=== PATIENT | female | born 1945 | race Caucasian/White ===

== ENCOUNTER → 2024-03-13 | Outpatient (CLI) | payer MEDICARE, BC, SELFPAY ==
--- NOTE | 2024-03-13 | XR_ITS ---
Examination: Bilateral hips, AP pelvis, 5 views Technique: AP, lateral views both hips, AP pelvis, 5 views Exam date and time: March 13, 2024 0815 hours INDICATIONS: Bilateral hip pain several years FINDINGS: Mild to moderate narrowing hip joints Prominent osteopenia No hip or pelvic fracture No avascular necrosis IMPRESSION: Mild to moderate bilateral hip joint narrowing
--- NOTE | 2024-03-13 | XR_ITS ---
Examination: Foot, left, 3 views Technique: AP, oblique, lateral views foot, 3 views Date and time of exam: March 13, 2024 0815 hours INDICATIONS: Left foot pain beginning 2 weeks ago. FINDINGS: Prominent osteopenia No fracture or dislocation 8mm plantar bony calcaneal spur Ossification in the plantar fascia Mild narrowing first metatarsophalangeal joint IMPRESSION: 8mm plantar bony calcaneal spur Ossification in the plantar fascia
[2024-03-13 10:11] LABS: Vitamin D 25 Hydroxy Total 45.8 ng/mL (7.3-40.2)
== END | disposition home or self-care (01) ==
LOC: COPL 07:49
PROVIDERS: PCP Specialist; Referring Provider Orthopaedic Surgery; Visit Provider Radiology Diagnostic Radiology
DX: M25.852 Other specified joint disorders, left hip (principal); M25.851 Other specified joint disorders, right hip; M77.32 Calcaneal spur, left foot; M72.2 Plantar fascial fibromatosis; E55.9 Vitamin D deficiency, unspecified
CPT/HCPCS: 36415; 73522; 73630; 82306

== ENCOUNTER 2024-03-23 13:55 | Inpatient (IN) | payer MEDICARE, BC, SELFPAY ==
[2024-03-23] VITALS (8 sets, daily range): BP systolic 111–146; BP diastolic 70–85; PULSE 60–72; RESP 15–20; TEMP 36.1–37.1; O2SAT 95–99; BMI 22.6
--- NOTE | 2024-03-23 14:30 | XR_ITS ---
Examination:Right hip AP, lateral, AP pelvis 3 views Technique: Hip AP lateral, AP pelvis, 3 views Exam date and time:March 23, 2024 1458 hrs. Indications: Patient fell today with injury to the right hip, right hip pain Findings: No definite acute right hip fracture Left hip bones of the pelvis intact Severe osteopenia Impression: No definite acute right hip fracture, given the patient's severe osteopenia, recommend short-term follow-up AP pelvis or CT scan pelvis without contrast as clinically warranted.
--- NOTE | 2024-03-23 14:32 | EDNOTE_ITS ---
ED General RME/HPI General Chief complaint: Fall Stated complaint: HIP PAIN Time Seen by Provider: 03/23/24 14:21 Arrival date/time: 03/23/24 13:55 RME / HPI RME / HPI narrative: 78-year-old female with a history of osteoarthritis who had a misstep in the kitchen onto the lateral aspect of her right hip. She complains of right hip pain, with it stuck in internal rotation due to the pain. She denies head or neck injury. Review of Systems Review of Systems Systems Reviewed: All systems reviewed, normal except as documented ED Exam Narrative Physical exam: GENERAL APPEARANCE: AxOx4, generally well-appearing, no acute distress. HEENT: NC, AT. MMM. EOMI, clear conjunctiva, oropharynx clear. NECK: Supple without lymphadenopathy. No stiffness or restricted ROM. HEART: Normal rate and regular rhythm, normal S1/S1, no m/r/g LUNGS: CTAB, moving air well. No crackles or wheezes are heard. ABDOMEN: Soft, nontender, nondistended with good bowel sounds heard. BACK: No midline C/T/L spine pain or deformity, No CVAT, no obvious deformity. EXTREMITIES: Without cyanosis, clubbing or edema. MUSCULOSKELETAL: Right hip held in internal rotation and flexion, she refuses to move it secondary to pain. FROM of all remaining major joints, no chest tenderness NEUROLOGICAL: Grossly nonfocal. Alert and oriented, moving all 4 extremities. CN not formally tested but appear grossly intact. Observed to ambulate with normal gait. Skin: Warm and dry without any rash. Course Quality Measures none Orders Category Date Time Status CT pelvis wo con Stat Exams 03/23/24 15:27 Taken XR hip RT w pelvis 2-3V Stat Exams 03/23/24 14:30 Completed Morphine Inj Med 03/23/24 15:53 Discontinued 4 mg IVP X1 ONE Morphine Inj Med 03/23/24 14:30 Discontinued 6 mg IVP X1 ONE Vital Signs Vital signs: Vital Signs Temperature 97.6 F 03/23/24 14:01 Pulse Rate 60 03/23/24 14:01 Respiratory Rate 17 03/23/24 14:01 Blood Pressure 125/85 H 03/23/24 14:01 Pulse Oximetry (%) 97 03/23/24 14:01 Oxygen Delivery Method Room Air 03/23/24 14:01 SpO2 97% on room air, patient is not hypoxic [facility] Patient data External records reviewed:: [facility] previous records Clinical information provided by:: patient Social determinants that could affect healthcare access:: none Patient has the following chronic illnesses:: None How is presenting disease/condition affected by chronic disease/condition?: no chronic disease Evaluation data The following diagnostics were reviewed and interpreted by me:: radiology exam(s) Lab and/or radiology exams considered but not ordered:: Workup pending Interpretation Summary: Workup pending Medications Medications considered but not ordered:: None Medication administrations:: Medication Administration History Discontinued Medications Morphine Sulfate (Morphine Sulf Inj 10 Mg/Ml Vial) 6 mg IVP X1 ONE Stop: 03/23/24 14:31 Last Admin: 03/23/24 14:38 Dose: 6 mg Documented By: GM Morphine Sulfate (Morphine Sulf Inj 10 Mg/Ml Vial) 4 mg IVP X1 ONE Stop: 03/23/24 15:54 Last Admin: 03/23/24 16:18 Dose: 4 mg Documented By: CS Above Consultations Consultation(s) initiated? (list below): No Diagnosis Differential Diagnosis ED Complaint MDM: Workup pending Most likely diagnosis given after review of the tests above:: Workup pending Admission Indicated Admission indicated?: not indicated Explain why admission is indicated or not indicated:: Workup pending 1800: Signed out to oncoming provider, Dr. Berger, pending CT results and final disposition Admission Request Was there a request for admission?: No Disposition Plan Disposition Plan: other (specify) (Signed out to oncoming provider in stable condition) Medical Decision Making Differential Diagnosis Differential Diagnosis: Workup pending Discharge Plan Prescriptions/Referrals Referrals: Chapito Garsia MD [Primary Care Provider] - In 1 week Problem List Clinical Impression: Acute pain of right hip, Ground-level fall Patient/Caregiver Discharge Instructions Print Language: Danish
[2024-03-23] MEDS: MORPHINE SULF INJ 10 MG/ML VIAL 6 MG IVP (14:38)
--- NOTE | 2024-03-23 15:27 | XR_ITS ---
Examination: CT pelvis without intravenous contrast. 2-D sagittal and coronal reconstructions. Date and time of exam:March 23, 2024 1659 hrs. Indications: Patient fell today with injury to the right hip, right hip pain CTDI: vol (mGy) :9.92 DLP: (mGycm) : 338 Technique: Multiple 3 mm axial sections of the pelvis have been obtained with the 64 slice high resolution scanner. 2-D sagittal and coronal reconstructions. Low dose protocols were performed. One or more of the following dose reduction techniques were used; automated exposure control, adjustment of the mA and/or KV according to patient size, use of iterative reconstruction technique. Findings: Severe osteopenia Acute right hip fracture which appears to involve the low femoral neck There is possible involvement also of the greater trochanter No hip dislocation Left hip bones of the pelvis intact Impression: Acute right hip fracture which appears to involve the low femoral neck with possible involvement also of the greater trochanter MRI right hip without contrast follow-up would best confirm an intertrochanteric portion of this hip fracture
[2024-03-23] MEDS: MORPHINE SULF INJ 10 MG/ML VIAL 4 MG IVP ×2 (16:18→18:39)
--- NOTE | 2024-03-23 18:15 | PD.EDADDENDU ---
Emergency Room Addendum Addendum Narrative: 1800: Care assumed from Dr. Rivera, the previous shift emergency physician. Past medical, surgical, social and family history reviewed. Vitals and home medications reviewed. Results and treatment plan discussed. I will assume the care of the patient at this time and will follow the patient, pending CT pelvis. Please refer to the emergency department record for history and examination from initial visit. 1851: Discussed case with [Dr. Miller] from [orthopedic surgery] regarding [consultation]. Discussed patients ED course, exam findings, labs, and radiology results. States to admit the patient. Agrees to consult. 1907: Discussed case with [the resident physician, attending Dr. Vazquez] from Hospitalist service regarding admission. Discussed patients ED course, exam findings, labs, and radiology results. The Hospitalist [agrees] to accept the patient for admission. RADIOLOGY RESULTS: [place] [facility] Report Signed Patient: LORENA SPAIN Record#: [id number] Birthdate: 1945 Age/Sex: 78 / F Location: [facility] Attending Dr: Ordering Physician: Mark Rivera MD Date of Service: 03/23/24 Procedure(s): CT pelvis wo con Accession Number(s): [id number] cc: Chapito Garsia MD; Mark Rivera MD; Brian Ozuna MD~ Examination: CT pelvis without intravenous contrast. 2-D sagittal and coronal reconstructions. Date and time of exam:March 23, 2024 1659 hrs. Indications: Patient fell today with injury to the right hip, right hip pain CTDI: vol (mGy) :9.92 DLP: (mGycm) : 338 Technique: Multiple 3 mm axial sections of the pelvis have been obtained with the 64 slice high resolution scanner. 2-D sagittal and coronal reconstructions. Low dose protocols were performed. One or more of the following dose reduction techniques were used; automated exposure control, adjustment of the mA and/or KV according to patient size, use of iterative reconstruction technique. Findings: Severe osteopenia Acute right hip fracture which appears to involve the low femoral neck There is possible involvement also of the greater trochanter No hip dislocation Left hip bones of the pelvis intact Impression: Acute right hip fracture which appears to involve the low femoral neck with possible involvement also of the greater trochanter MRI right hip without contrast follow-up would best confirm an intertrochanteric portion of this hip fracture Dictated By: Brian Ozuna MD Signed By: <Electronically signed by Brian Ozuna MD in OV> 03/23/24 181
--- NOTE | 2024-03-23 19:49 | ESHP_ITS ---
Documentation for date of: 03/23/24 HPI History of Present Illness Chief complaint: Ground level fall History of present illness: 78-year-old female with past medical history of osteoporosis not on any current medications, chronic hip pain, mitral valve prolapse followed by Dr. Fortune without any cardiac surgeries presenting to the ED on 03/14 after a ground-level fall. Patient states that she was walking in her kitchen when she made a quick twisting movement lost her balance. Patient states she attempted to grab onto a chair but the chair also slipped out and she fell on her right side. Patient denies losing consciousness or experiencing any shortness of breath, chest pain/tightness, palpitations during episode. Patient was aware that she had fallen and was not confused at any point during the fall; moreover, she was on the floor for about 20 to 30 minutes. Patient's cell phone was nearby and she noticed that her family members were attempting to contact her through text messaging. Patient's daughter and son are bedside and corroborated the story stating that they were with her within 30 minutes and called the ambulance. Patient denies having any current medical conditions that are being treated with prescription medication; however, she follows Dr. Fortune and apparently other than having a valvular issue does have any medical problems. Per patient's family, she has been having hip pain and is followed by Dr. Lawson outpatient requiring glucocorticoid management; as result, she walks with a shuffling like gait. Medical history: As stated above Surgical history: Patient has a prior fall with fracture of ribs and cervical spine Allergies: NKDA Medications: Patient does not take any prescribed occasions Family history: Noncontributory Social history: Patient lives by herself, per family dances 4-5 nights a week/she is active, patient is able to care for her independent daily activities, denies smoking alcohol, drinking alcohol or illicit drug use ROS: All 12 systems assessed and the patient denies unless otherwise stated in HPI In the ED, patient presented mildly hypertensive, normal heart rate, normal respiratory rate, afebrile satting 97 on room air. Pertinent imaging findings included Hip/pelvis x-ray showing no definite acute right hip fracture, but pelvic CT showing acute right hip fracture involving the left femoral neck and also possibly greater trochanter. ED physician contacted Dr. Miller who has agreed to see the patient in follow-up with surgery. Patient will be admitted for IV pain medication and management pre and postoperatively for right hip fracture with Dr. Miller. Exam Vital Signs Temp Pulse Resp BP Pulse Ox O2 Del Method 98.3 F 63 15 123/78 99 Room Air 03/23/24 18:03 03/23/24 18:03 03/23/24 18:03 03/23/24 18:03 03/23/24 18:03 03/23/24 18:03 Narrative Exam Physical Exam: GENERAL: Awake, answering questions appropriately, appears stated age HEENT: NC/AT. Moist mucosa. PERRLA/EOMI. Presbycusis CARDIO: Heart RRR, no obvious murmurs, no JVD. PULM: No coughing or visible SOB. Lungs CTA B/L. GI: Abdomen soft, NT/ND, +BS. SKIN/MSK/EXT: No wounds/discoloration/rashes/edema/amputations. +Pedal pulses present B/L. 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 Quality Measures Quality Measures none Advance care planning discussed with:: patient Medications Home Medications and Allergies Allergies Allergy/AdvReac Type Severity Reaction Status Date / Time No Known Allergies Allergy Verified 03/23/24 18:57 Visit Medications Acetaminophen (Acetaminophen 325 Mg Tablet) 650 mg PO Q6H PRN PRN Reason: Pain 1-3 and/or Fever >100.1 Stop: 04/22/24 19:42 Hydromorphone HCl (Hydromorphone Inj 2 Mg/Ml Vial) 0.5 mg IVP PRN PRN PRN Reason: PAIN 9-10 Stop: 03/28/24 18:49 Ketorolac Tromethamine (Ketorolac Inj 30 Mg/Ml Vial) 30 mg IVP Q6HR PRN PRN Reason: Pain 4-6 Stop: 03/28/24 19:47 Morphine Sulfate (Morphine Sulf Inj 10 Mg/Ml Vial) 1 mg IVP Q4HR PRN PRN Reason: Pain Scale 7-8 Stop: 03/28/24 19:42 Ondansetron HCl (Ondansetron Inj 2 Mg/Ml Inj 2 Ml) 4 mg IV Q6H PRN; Protocol PRN Reason: NAUSEA OR VOMITING Stop: 04/22/24 19:42 Pantoprazole Sodium (Pantoprazole Inj 40 Mg Vial) 40 mg IVP QDAY MARCK Stop: 04/23/24 08:59 Sennosides (Senna Tablet) 1 tab PO QDAY PRN; Protocol PRN Reason: constipation Stop: 04/24/24 08:59 Discontinued Medications Hydromorphone HCl (Hydromorphone Inj 2 Mg/Ml Vial) 0.5 mg IVP PRN PRN PRN Reason: PAIN Stop: 03/28/24 18:49 Morphine Sulfate (Morphine Sulf Inj 10 Mg/Ml Vial) 6 mg IVP X1 ONE Stop: 03/23/24 14:31 Last Admin: 03/23/24 14:38 Dose: 6 mg Morphine Sulfate (Morphine Sulf Inj 10 Mg/Ml Vial) 4 mg IVP X1 ONE Stop: 03/23/24 15:54 Last Admin: 03/23/24 16:18 Dose: 4 mg Morphine Sulfate (Morphine Sulf Inj 10 Mg/Ml Vial) 4 mg IVP X1 ONE Stop: 03/23/24 18:36 Last Admin: 03/23/24 18:39 Dose: 4 mg Morphine Sulfate (Morphine Sulf Inj 10 Mg/Ml Vial) 4 mg IVP X1 ONE Stop: 03/23/24 18:49 Morphine Sulfate (Morphine Sulf Inj 10 Mg/Ml Vial) 1 mg IVP Q4HR PRN PRN Reason: PAIN SCALE 7-10 (Severe Stop: 03/28/24 19:42 Assessment & Plan Plan 78-year-old female with past medical history of osteoporosis not on any current medications, chronic hip pain, mitral valve prolapse followed by Dr. Fortune without any cardiac surgeries presenting after a ground-level fall will be admitted for IV pain medication and management pre and postoperatively for right hip fracture with Dr. Miller. #R hip fracture #Ground level fall #Acute pain due to trauma As noted in HPI, patient had a ground-level fall which occurred after she turned to the right in her kitchen Patient did not lose consciousness, no palpitations, no chest pain or shortness of breath Fall was not witnessed but the patient denies having any confusion during or after the episode In the ED, hip/pelvic x-ray did not show fracture but pelvic CT confirmed acute right hip fracture involving the low femoral neck and greater trochanter Patient in acute pain in the ED requiring a total of 14 mg morphine along with hydromorphone as needed for severe pain Plan: Dr. Miller, orthopedic surgery, consulted appreciate recommendations Patient will be n.p.o. after midnight pending likely surgery on 03/24 Multimodal pain management IV Zofran for as needed nausea PT eval Patient's family and patient have been made aware that she might require SNF placement #History of Osteoporosis #Right hip pain Patient has known history of osteoporosis, used to be on allergy overnight but currently denies take any prescription medications Per family patient has been having hip pain for several years, followed by Dr. Lawson Apparently secondary to the pain the patient's been having shuffling like gait which is attributed as a reason for her fall Plan: Outpatient follow-up #Mitral Valve Prolapse Patient follows up with Dr. Fortune, cardiology outpatient Per patient, she has mitral valve prolapse but then she stated that the problem is on the right side of her heart? When asked if she meant tricuspid valve she did not know Patient denies having any other cardiac disorders and denies taking any prescription medication Plan: Outpatient follow-up Hospital Management: Lines: PIV Diet: N.p.o. after midnight Bowel: Senna as needed GI prophylaxis: Protonix DVT prophylaxis: SCDs Dispo: Right hip fracture requiring surgery with Dr. Miller, appreciate recommendations Code: Full Patient seen and assessed with attending Dr. Lopez,and senior resident Dr. Heena Appiah, PGY-1 Attending Provider Attestation/Addendum I discussed with and supervised the resident physician who took care of this patient. I agree with the assessment and plan as above.
[2024-03-23] MEDS: ONDANSETRON INJ 2 MG/ML INJ 2 ML 4 MG IV (20:02)
[2024-03-23] MEDS: HYDROmorphone INJ 2 MG/ML VIAL 0.5 MG IVP (20:03)
[2024-03-23 20:29] LABS: Basophils % (Auto) 0 % (0-2.5); Eosinophils % (Auto) 0 % (0-10); Hematocrit 35.4 % (36.0-46.0); Immature Granulocytes % (Auto) 1 % (0-0); Immature Granulocytes Auto 0.06 Thou/mm3 (0.00-0.00); Lymphocytes # (Auto) 0.6 Thou/mm3 (1.0-4.8); Lymphocytes % (Auto) 5 % (10-50); Mean Corpuscular HGB Conc 33.9 g/dl (31.0-37.0); Mean Corpuscular Hemoglobin 28.9 pg (25.0-35.0); Mean Corpuscular Volume 85 fL (80-100); Monocytes # (Auto) 0.7 Thou/mm3 (0.0-0.8); Monocytes % (Auto) 6 % (0-12); Neutrophils # (Auto) 10.1 Thou/mm3 (1.8-7.7); Neutrophils % (Auto) 88 % (37-80); Nucleated Red Blood Cell % 0 /100 WBC (0); Platelet Count 157 Thou/mm3 (140-440); RDW Standard Deviation 43.8 fL (36.4-46.3); Red Blood Count 4.15 Miln/mm3 (4.00-5.20); White Blood Count 11.5 Thou/mm3 (3.6-11.0)
[2024-03-23 20:49] LABS: Alanine Aminotransferase 18 U/L (10-49); Albumin, Serum 3.8 gm/dL (3.4-4.8); Albumin/Globulin Ratio 1.2 (1.2-2.2); Alkaline Phosphatase 84 U/L (46-116); Anion Gap 7 (7-16); Aspartate Amino Transferase 32 U/L (0-34); BUN/Creatinine Ratio 19 Ratio (12-20); Bilirubin,Total 0.9 mg/dL (0.3-1.2); Blood Urea Nitrogen 15 mg/dL (9-23); Calcium 9.3 mg/dL (8.3-10.6); Calcium (Corrected) 9.5 mg/dL (8.5-10.1); Chloride 104 mMol/L (98-107); Creatinine (Component) 0.8 mg/dL (0.6-1.3); Estimated Creatinine Clearance 52.5 mL/min (>60); Globulin 3.1 gm/dL (2.3-3.5); Glucose 117 mg/dL (74-106); Osmolality,Calculated 275 (275-295); Potassium 3.5 mMol/L (3.4-5.1); Sodium 137 mMol/L (136-145); Total Protein 6.9 gm/dL (5.7-8.2); eGFR > 60 See Note
--- NOTE | 2024-03-23 21:00 | PC.NURSE ---
Pt is awake/alert/oriented x3. Respirations are even and unlabored. No s/s of acute distress noted. Call light within reach. Plan of care ongoing.
--- NOTE | 2024-03-23 21:43 | PC.NURSE ---
Report given to ALISHA Wood
[2024-03-24] VITALS: BP 116/69; PULSE 57; RESP 16; TEMP 36.3; O2SAT 98
[2024-03-24] MEDS: KETOROLAC INJ 30 MG/ML VIAL IVP (01:16)
[2024-03-24 04:00] VITALS: BP 108/75; PULSE 58; RESP 17; TEMP 36.2; O2SAT 99
[2024-03-24 06:04] LABS: Basophils % (Auto) 0 % (0-2.5); Eosinophils % (Auto) 0 % (0-10); Hematocrit 35.3 % (36.0-46.0); Hemoglobin 11.8 g/dL (12.0-16.0); Immature Granulocytes % (Auto) 1 % (0-0); Immature Granulocytes Auto 0.04 Thou/mm3 (0.00-0.00); Lymphocytes # (Auto) 1.2 Thou/mm3 (1.0-4.8); Lymphocytes % (Auto) 14 % (10-50); Mean Corpuscular HGB Conc 33.4 g/dl (31.0-37.0); Mean Corpuscular Hemoglobin 29.4 pg (25.0-35.0); Mean Corpuscular Volume 88 fL (80-100); Monocytes # (Auto) 0.9 Thou/mm3 (0.0-0.8); Monocytes % (Auto) 10 % (0-12); Neutrophils # (Auto) 6.6 Thou/mm3 (1.8-7.7); Neutrophils % (Auto) 75 % (37-80); Nucleated Red Blood Cell % 0 /100 WBC (0); Platelet Count 162 Thou/mm3 (140-440); RDW Standard Deviation 45.1 fL (36.4-46.3); Red Blood Count 4.01 Miln/mm3 (4.00-5.20); White Blood Count 8.9 Thou/mm3 (3.6-11.0)
[2024-03-24] MEDS: MORPHINE SULF INJ 10 MG/ML VIAL IVP (06:10)
[2024-03-24 06:43] LABS: INR 1.1 (0.9-1.3); Partial Thromboplastin Time 24.8 Seconds (22.0-36.0); Prothrombin Time 11.9 Seconds (9.0-12.2)
[2024-03-24 07:13] LABS: Alanine Aminotransferase 19 U/L (10-49); Albumin, Serum 3.7 gm/dL (3.4-4.8); Albumin/Globulin Ratio 1.2 (1.2-2.2); Alkaline Phosphatase 81 U/L (46-116); Anion Gap 7 (7-16); Aspartate Amino Transferase 29 U/L (0-34); BUN/Creatinine Ratio 18 Ratio (12-20); Blood Urea Nitrogen 14 mg/dL (9-23); Calcium 9.4 mg/dL (8.3-10.6); Calcium (Corrected) 9.6 mg/dL (8.5-10.1); Carbon Dioxide 27.9 mMol/L (20.0-31.0); Chloride 102 mMol/L (98-107); Creatinine (Component) 0.8 mg/dL (0.6-1.3); Estimated Creatinine Clearance 52.5 mL/min (>60); Glucose 109 mg/dL (74-106); Osmolality,Calculated 275 (275-295); Phosphorous 4.3 mg/dL (2.4-5.1); Potassium 4.4 mMol/L (3.4-5.1); Sodium 137 mMol/L (136-145); Total Protein 6.7 gm/dL (5.7-8.2); eGFR > 60 See Note
[2024-03-24 07:25] LABS: Cardiac Risk Estimate 2.4 RATIO (3.7-5.6); Cholesterol 137 mg/dL (132-200); HDL Cholesterol 57 mg/dL (40-60); LDL Cholesterol,Calculated 71 mg/dL (0-130); Triglycerides 47 mg/dL (30-150)
[2024-03-24 08:00] VITALS: BP 119/69; PULSE 55; RESP 15; TEMP 36.1; O2SAT 95
--- NOTE | 2024-03-24 08:59 | PC.PT ---
Patient has a R hip fracture. Will hold PT eval pending ortho consult/surgical intervention.
--- NOTE | 2024-03-24 09:03 | EKG_ITS ---
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 : 1945 Requested By: Alona Al Order Number: [id number] Reading MD: Alona Al Measurements Intervals [place] Rate: 64 P: 183 OK: 139 QRS: -71 QRSD: 148 T: 38 QT: 437 QTc: 453 Interpretive Statements ECTOPIC ATRIAL RHYTHM WITH OCCASIONAL VENTRICULAR PREMATURE COMPLEXES RIGHT BUNDLE BRANCH BLOCK [120+ ms QRS DURATION, UPRIGHT V1, 40+ ms S IN I/aVL/V4/V5/V6] LEFT ANTERIOR FASCICULAR BLOCK [QRS AXIS <= -45, QR IN I, RS IN II] LEFT VENTRICULAR HYPERTROPHY AND ST-T CHANGE [VOLTAGE CRITERIA PLUS ST/T ABNORMALITY] POSSIBLE ANTEROSEPTAL MYOCARDIAL INFARCTION , OF INDETERMINATE AGE [30 ms Q WAVE IN V1-V4] Compared to ECG 07/19/2021 11:01:39 Ectopic atrial rhythm now present Ventricular premature complex(es) now present ST (T wave) deviation now present Sinus rhythm no longer present First degree AV block no longer present Myocardial infarct finding still present /store/S0/[id number]/ecg/[id number].pdf
--- NOTE | 2024-03-24 09:03 | XR_ITS ---
Examination: AP chest single view TECHNIQUE: AP portable sitting chest single view Exam date and time: March 24, 2024 0959 hours Comparison October 26, 2022 INDICATIONS: Preop hip fracture repair FINDINGS: Moderate hyperexpansion Normal heart size Accentuation basilar bronchovascular markings. No lobar pneumonia Prominent osteopenia IMPRESSION: COPD Basilar bronchitis pattern
[2024-03-24] MEDS: PANTOPRAZOLE INJ 40 MG VIAL IVP (09:36)
[2024-03-24] MEDS: HYDROmorphone INJ 2 MG/ML VIAL 0.5 MG IVP ×5 (10:18→22:03)
--- NOTE | 2024-03-24 10:58 | PC.SS ---
Patient Shreya Sotelo is a 78 Year old female admitted ofr RT HIP FX. SS met with patient and daughter, Lawanda Peñaloza at bedside to review demographic information and discuss discharge planning. Patient lives at home with daughter, Lawanda who reports is surrogate decision maker [phone]. Prior to admission patient did not utilize any sorce of DME to assist with ambulation. Patient was able to complete all ADL's independently. Choice of pharmacy is [facility]. At time of Discharge patient will need SNF. First choice of SNF is [facility]. SS will submit inqury through [employer] platform. Next of Kin: Lawanda Peñaloza PCP: Chapito Bustamante Discharge plan: SNF VS Home
--- NOTE | 2024-03-24 11:14 | PC.SS ---
Patient Shreya Sotelo is a 78 Year old female admitted ofr RT HIP FX. SS met with patient and daughter, Lawanda Peñaloza at bedside to review demographic information and discuss discharge planning. Patient lives at home with daughter, Lawanda who reports is surrogate decision maker [phone]. Prior to admission patient did not utilize any sorce of DME to assist with ambulation. Patient was able to complete all ADL's independently. Choice of pharmacy is [facility]. At time of Discharge patient will need SNF. First choice of SNF is [facility]. SS will submit inqury through [employer] platform. Next of Kin: Lawanda Peñaloza PCP: Chapito Bustamante Discharge plan: SNF VS Home
--- NOTE | 2024-03-24 11:14 | PC.SS ---
Patient Shreya Sotelo is a 78 Year old female admitted ofr RT HIP FX. SS met with patient and daughter, Lawanda Peñaloza at bedside to review demographic information and discuss discharge planning. Patient lives at home with daughter, Lawanda who reports is surrogate decision maker [phone] Prior to admission patient did not utilize any sorce of DME to assist with ambulation. Patient was able to complete all ADL's independently. Choice of pharmacy is [facility]. At time of Discharge patient will need SNF. First choice of SNF is [facility]. SS will submit inqury through [employer] platform. Next of Kin: Lawanda Anabela [phone] Work: [phone] PCP: Chapito Bustamante Discharge plan: SNF VS Home
--- NOTE | 2024-03-24 11:19 | PC.SS ---
SS follow up note; SS submitted inquiry through [employer] platform. Family would like [facility]. SS contacted Jennifer and they are able to accept patient when medically cleared. SS submitted PASSR and faxed to Jennifer from [facility].
--- NOTE | 2024-03-24 11:54 | ESPR_ITS ---
Documentation for date of: 03/24/24 Subjective Subjective Interval history: No overnight events. Patient was resting in bed this morning, complaining of low back and right hip pain with movement. She was n.p.o. overnight, but we resume diet today since surgery scheduled for tomorrow. Denies fever, chills, headaches, chest pain, sob, cough, GI or urinary symptoms. Exam Vital Signs Temp Pulse Resp BP Pulse Ox O2 Del Method 97.0 F 55 L 15 119/69 95 Room Air 03/24/24 08:00 03/24/24 08:00 03/24/24 08:00 03/24/24 08:00 03/24/24 08:00 03/24/24 08:00 Narrative Exam GENERAL: Normal appearing elderly female, appears comfortable HEENT: NCAT.?THEE. Oral mucosa is moist. Patent Nares NECK: Supple, nontender, no thyromegaly, no meningismus, no JVD, no step offs CHEST: Symmetrical, atraumatic, and with equal expansion, Nontender on palpation no deformity and no crepitus. CARDIOVASCULAR: RRR, no m/g/r LUNGS: CTAB, no w/r/r. Symmetrical chest rise. No intercostal subcostal retraction. ABDOMEN: Soft, flat, nontender. No guarding/rebound tenderness/masses. +BS EXTREMITIES: No edema/cyanosis. Restricted movement of RLE secondary to pain. No obvious bony deformities on exam however exam limited due to pain. Pulses intact throughout. SKIN: Warm and dry, no jaundice/rashes. MSK: No lumbar or midline, no CVA, no paraspinal muscle spasm or tenderness. NEURO: REINA x4, CN II-XII grossly intact.?No focal neurologic deficits. PSYCHIATRIC: Normal mood and affect, cooperative, no SI or HI or hallucinations. Objective Labs 03/24/24 05:25 03/24/24 05:25 Labs: Laboratory Results - last 24 hr 03/23/24 03/24/24 20:24 05:25 WBC 11.5 H 8.9 RBC 4.15 4.01 Hgb 12.0 11.8 L Hct 35.4 L 35.3 L MCV 85 88 MCH 28.9 29.4 MCHC 33.9 33.4 RDW Std Deviation 43.8 45.1 Plt Count 157 162 Neut % (Auto) 88 H 75 Lymph % (Auto) 5 L 14 [place] % (Auto) 6 10 Eos % (Auto) 0 0 Baso % (Auto) 0 0 Neut # (Auto) 10.1 H 6.6 Lymph # (Auto) 0.6 L 1.2 [place] # (Auto) 0.7 0.9 H Eos # (Auto) 0.0 0.0 Baso # (Auto) 0.0 0.0 Immature Gran # (Auto) 0.06 H 0.04 H Absolute Nucleated RBC 0.00 0.00 Immature Gran % 1 H 1 H Nucleated RBC % 0 0 PT 11.9 INR 1.1 APTT 24.8 Sodium 137 137 Potassium 3.5 4.4 D Chloride 104 102 Carbon Dioxide 26.0 27.9 Anion Gap 7 7 BUN 15 14 Creatinine 0.8 0.8 Estim Creat Clear Calc 52.5 L 52.5 L eGFR > 60 > 60 BUN/Creatinine Ratio 19 18 Glucose 117 H 109 H Calculated Osmolality 275 275 Calcium 9.3 9.4 Corrected Calcium 9.5 9.6 Phosphorus 4.3 Magnesium 2.0 Total Bilirubin 0.9 1.0 AST 32 29 ALT 18 19 Alkaline Phosphatase 84 81 Total Protein 6.9 6.7 Albumin 3.8 3.7 Globulin 3.1 3.0 Albumin/Globulin Ratio 1.2 1.2 Triglycerides 47 Cholesterol 137 LDL Cholesterol, Calc 71 HDL Cholesterol 57 Cholesterol/HDL Ratio 2.4 L Quality Measures Quality Measures none Advance care planning discussed with:: patient Assessment & Plan Assessment Current Active Medications: Generic Name Dose Route Start Last Admin Trade Name Freq PRN Reason Stop Dose Admin Acetaminophen 650 mg 03/23/24 19:43 Acetaminophen 325 Mg Tablet PO 04/22/24 19:42 Q6H PRN Pain 1-3 and/or Fever >100.1 Hydromorphone HCl 0.5 mg 03/24/24 08:56 03/24/24 10:18 Hydromorphone Inj 2 Mg/Ml Vial IVP 03/28/24 19:48 0.5 mg Q2H PRN Administration PAIN 9-10 Ketorolac Tromethamine 30 mg 03/23/24 19:48 03/24/24 01:16 Ketorolac Inj 30 Mg/Ml Vial IVP 03/28/24 19:47 30 mg Q6HR PRN Administration Pain 4-6 Morphine Sulfate 1 mg 03/23/24 19:49 03/24/24 06:10 Morphine Sulf Inj 10 Mg/Ml Vial IVP 03/28/24 19:42 1 mg Q4HR PRN Administration Pain Scale 7-8 Ondansetron HCl 4 mg 03/23/24 19:43 03/23/24 20:02 Ondansetron Inj 2 Mg/Ml Inj 2 Ml IV 04/22/24 19:42 4 mg Q6H PRN Administration NAUSEA OR VOMITING Protocol Pantoprazole Sodium 40 mg 03/24/24 09:00 03/24/24 09:36 Pantoprazole Inj 40 Mg Vial IVP 04/23/24 08:59 40 mg QDAY MARCK Administration Sennosides 1 tab 03/25/24 09:00 Senna Tablet PO 04/24/24 08:59 QDAY PRN constipation Protocol Plan In summary: 78-year-old female PMHx of osteoporosis and mitral valve prolapse admitted for right hip fracture secondary to ground-level fall. Pending preop cardiac clearance for surgery with Dr. Bach tomorrow 03/25. She will be n.p.o. at midnight. R hip fracture Ground level fall Acute pain due to trauma Right hip fracture secondary to ground-level fall. Fracture wasn't seen on x- ray, however CT pelvic showed acute right hip fracture involving left femoral neck and possible greater trochanter. Pending cardiology clearance. ? Pain control ? N.p.o. midnight 03/25 ? Ordered 2 unit of blood as well as type and screen per ORTHO recommendations ? AM labs including INR and PTT ? Pending surgery with Dr. Bach tomorrow 03/25 History of Osteoporosis Right hip pain Chronic, history of osteoporosis, not currently medicated. Follows Dr. SMITH outpatient for right hip pain. Patient also has a history of shuffling gait per daughter. However, no definitive diagnosis has been made. Unable to assess gait abnormality at this time. ? Continue to follow with Dr. Gonzales outpatient Mitral Valve Prolapse History of, follows Dr. Fortune outpatient. Currently asymptomatic. Pending cardiac clearance for OR tomorrow. EKG and chest x-ray ordered. ? Pending cardiology recommendations Health maintenance Diet: Cardiac, n.p.o. midnight 03/25 GI prophylaxis: PROTONIX DVT prophylaxis: SCDs Antibiotics: Not indicated CODE STATUS: Full code Disposition: OR with Dr. Bach Patient case was discussed with attending, Dr. Pedro Gonzales DO and senior residents Dr. Starr and Dr. Tavera. Alona Al DO PGYI Attending Provider Attestation/Addendum I have discussed and was present for the essential components of the history, physical examination, diagnosis, and treatment plan with the resident. I agree with the patient's care as documented by the resident and amended herein by me. Albino Gonzales DO. Although this document has been carefully reviewed, there may still be some phonetic and other typographical errors. These errors are purely grammatical due to imperfections in the software program and should not be construed in any way to compromise the substance of the patient's medical care during this visit.
[2024-03-24 12:00] VITALS: BP 108/60; PULSE 64; RESP 15; TEMP 36.3; O2SAT 94
--- NOTE | 2024-03-24 14:42 | PC.SS ---
Rounding note: patient is pending surgery tomorrow with Dr. Bach for hip fracture.
[2024-03-24 16:00] VITALS: BP 107/58; PULSE 64; RESP 15; TEMP 36.2; O2SAT 95
--- NOTE | 2024-03-24 18:24 | PC.NURSE ---
Lab called and report during cross check has the [facility] and has order the [facility] that has the antibody and it will be delived to them by midnight,. will be ready for pt. for tommorow for surgery.
[2024-03-24 20:00] VITALS: BP 123/63; PULSE 74; RESP 18; TEMP 36.6; O2SAT 91
--- NOTE | 2024-03-24 23:27 | ESCONSULT_ITS ---
RE: LORENA SPAIN : 1945 DATE OF CONSULTATION: 03/24/2024 CONSULTING PHYSICIAN: Dr. Miller. REASON FOR CONSULTATION: Evaluation of cardiac clearance for surgery. CHIEF COMPLAINT: Fracture of the hip. HISTORY OF PRESENT ILLNESS: The patient is well-known to me. She is an 78-year-old female who had a complete cardiac workup in my office recently. Long-standing history of mitral valve prolapse, otherwise in fairly good health. Occasional palpitations. Never had any major medical problems. Presented to the hospital after she fell in her kitchen. She twisted herself and lost her balance and fell accidentally, grabbed a chair, but this chair also slipped and she suffered fracture of the hip _ she suffered fracture of the right hip. The patient also complains of severe right hip pain, unable to walk. The x-rays confirm presence of intertrochanteric _ the hip. Dr. Miller has scheduled the patient for surgery tomorrow. ALLERGIES: NONE. MEDICATIONS: No medications. PAST MEDICAL HISTORY: None_ SOCIAL HISTORY: She is very active. Does not smoke or drink alcoholic beverages. FAMILY HISTORY: Noncontributory. PHYSICAL EXAMINATION: GENERAL: A well-nourished, pleasant, thin-built elderly female. Alert, awake, in no acute distress. Looks somewhat younger than her stated age. VITAL SIGNS: Blood pressure is stable, 120/69. Pulse rate is 60, respirations 18. Temperature normal. Pulse ox 95% on room air. HEENT: Head is atraumatic and normocephalic. Eyes normal. ENT normal. NECK: Supple. No JVD. Carotid pulse felt, but no bruits. CHEST: Symmetrical. LUNGS: Clear. HEART: S1 and S2 regular. There is mid systolic click heard with no gallops or murmurs. ABDOMEN: Thin and soft. EXTREMITIES: No edema. GENITOURINARY AND RECTAL: Not performed. CENTRAL NERVOUS SYSTEM: Normal. LABORATORY DATA: Normal. EKG; right bundle branch block pattern, unchanged. Nonspecific ST-T changes seen. IMPRESSION AND ASSESSMENT: 1. Intertrochanteric fracture of the right hip, requesting cardiac clearance for surgery. 2. Negative cardiac workup. Nuclear scan stress test in 2023 normal. Cardiac echocardiogram showed ejection fraction 58% in my office. RECOMMENDATIONS: Based on the recent cardiac workup and negative examination and good effort tolerance, the patient has a low cardiac risk for surgery. Giving cardiac clearance for surgery. No further testing is necessary. DT: 22:49:38 TT: 23:09:00 Ref: [id number] - TID: [id number] MTDD
[2024-03-25] VITALS (14 sets, daily range): BP systolic 93–112; BP diastolic 52–69; PULSE 59–85; RESP 13–23; TEMP 36.3–36.8; O2SAT 92–98
[2024-03-25] MEDS: HYDROmorphone INJ 2 MG/ML VIAL 0.5 MG IVP ×3 (01:10→10:08)
[2024-03-25 06:00] LABS: Basophils % (Auto) 0 % (0-2.5); Eosinophils # (Auto) 0.1 Thou/mm3 (0.0-0.5); Eosinophils % (Auto) 1 % (0-10); Hematocrit 35.4 % (36.0-46.0); Hemoglobin 11.2 g/dL (12.0-16.0); Immature Granulocytes % (Auto) 1 % (0-0); Immature Granulocytes Auto 0.06 Thou/mm3 (0.00-0.00); Lymphocytes # (Auto) 0.8 Thou/mm3 (1.0-4.8); Lymphocytes % (Auto) 8 % (10-50); Mean Corpuscular HGB Conc 31.6 g/dl (31.0-37.0); Mean Corpuscular Hemoglobin 28.9 pg (25.0-35.0); Mean Corpuscular Volume 92 fL (80-100); Monocytes # (Auto) 0.7 Thou/mm3 (0.0-0.8); Monocytes % (Auto) 7 % (0-12); Neutrophils # (Auto) 8.5 Thou/mm3 (1.8-7.7); Neutrophils % (Auto) 84 % (37-80); Nucleated Red Blood Cell % 0 /100 WBC (0); Platelet Count 163 Thou/mm3 (140-440); RDW Standard Deviation 48.6 fL (36.4-46.3); Red Blood Count 3.87 Miln/mm3 (4.00-5.20); White Blood Count 10.2 Thou/mm3 (3.6-11.0)
[2024-03-25 06:17] LABS: INR 1.1 (0.9-1.3)
[2024-03-25 06:38] LABS: Alanine Aminotransferase 17 U/L (10-49); Albumin, Serum 3.8 gm/dL (3.4-4.8); Albumin/Globulin Ratio 1.2 (1.2-2.2); Alkaline Phosphatase 78 U/L (46-116); Anion Gap 7 (7-16); Aspartate Amino Transferase 24 U/L (0-34); BUN/Creatinine Ratio 16 Ratio (12-20); Blood Urea Nitrogen 13 mg/dL (9-23); Calcium 8.8 mg/dL (8.3-10.6); Carbon Dioxide 27.5 mMol/L (20.0-31.0); Chloride 100 mMol/L (98-107); Creatinine (Component) 0.8 mg/dL (0.6-1.3); Estimated Creatinine Clearance 52.5 mL/min (>60); Globulin 3.2 gm/dL (2.3-3.5); Glucose 100 mg/dL (74-106); Osmolality,Calculated 268 (275-295); Phosphorous 3.1 mg/dL (2.4-5.1); Sodium 134 mMol/L (136-145); eGFR > 60 See Note
[2024-03-25] MEDS: PANTOPRAZOLE INJ 40 MG VIAL IVP (08:48)
--- NOTE | 2024-03-25 12:09 | ESPR_ITS ---
Documentation for date of: 03/25/24 Subjective Subjective Interval history: No acute overnight events. Patient currently n.p.o., pending surgery with ORTHO later today. Pain managed with current regimen. Denies fever, chills, headaches, chest pain, sob, cough, GI or urinary symptoms. Exam Vital Signs Temp Pulse Resp BP Pulse Ox O2 Del Method 97.3 F 74 16 98/62 94 L Room Air 03/25/24 07:40 03/25/24 07:40 03/25/24 07:40 03/25/24 07:40 03/25/24 07:40 03/25/24 07:40 Narrative Exam GENERAL: Normal appearing elderly female, appears comfortable HEENT: NCAT.?THEE. Oral mucosa is moist. Patent Nares NECK: Supple, nontender, no thyromegaly, no meningismus, no JVD, no step offs CHEST: Symmetrical, atraumatic, and with equal expansion, Nontender on palpation no deformity and no crepitus. CARDIOVASCULAR: RRR, no m/g/r LUNGS: CTAB, no w/r/r. Symmetrical chest rise. No intercostal subcostal retraction. ABDOMEN: Soft, flat, nontender. No guarding/rebound tenderness/masses. +BS EXTREMITIES: No edema/cyanosis. Restricted movement of RLE secondary to pain. No obvious bony deformities on exam however exam limited due to pain. Pulses intact throughout. SKIN: Warm and dry, no jaundice/rashes. MSK: No lumbar or midline, no CVA, no paraspinal muscle spasm or tenderness. NEURO: REINA x4, CN II-XII grossly intact.?No focal neurologic deficits. PSYCHIATRIC: Normal mood and affect, cooperative, no SI or HI or hallucinations. Objective Labs 03/25/24 04:48 03/25/24 04:48 Labs: Laboratory Results - last 24 hr 03/24/24 03/24/24 03/24/24 14:00 14:00 14:00 WBC RBC Hgb Hct MCV MCH MCHC RDW Std Deviation Plt Count Neut % (Auto) Lymph % (Auto) [place] % (Auto) Eos % (Auto) Baso % (Auto) Neut # (Auto) Lymph # (Auto) [place] # (Auto) Eos # (Auto) Baso # (Auto) Immature Gran # (Auto) Absolute Nucleated RBC Immature Gran % Nucleated RBC % PT INR Sodium Potassium Chloride Carbon Dioxide Anion Gap BUN Creatinine Estim Creat Clear Calc eGFR BUN/Creatinine Ratio Glucose Calculated Osmolality Calcium Corrected Calcium Phosphorus Magnesium Total Bilirubin AST ALT Alkaline Phosphatase Total Protein Albumin Globulin Albumin/Globulin Ratio Blood Type O Negative Antibody Screen POSITIVE Antibody Identification Anti-C Anti-D Anti-E Crossmatch Blood Bank Wristband ID 03/24/24 03/25/24 14:00 04:48 WBC 10.2 RBC 3.87 L Hgb 11.2 L Hct 35.4 L MCV 92 MCH 28.9 MCHC 31.6 RDW Std Deviation 48.6 H Plt Count 163 Neut % (Auto) 84 H Lymph % (Auto) 8 L [place] % (Auto) 7 Eos % (Auto) 1 Baso % (Auto) 0 Neut # (Auto) 8.5 H Lymph # (Auto) 0.8 L [place] # (Auto) 0.7 Eos # (Auto) 0.1 Baso # (Auto) 0.0 Immature Gran # (Auto) 0.06 H Absolute Nucleated RBC 0.00 Immature Gran % 1 H Nucleated RBC % 0 PT 12.0 INR 1.1 Sodium 134 L Potassium 4.0 Chloride 100 Carbon Dioxide 27.5 Anion Gap 7 BUN 13 Creatinine 0.8 Estim Creat Clear Calc 52.5 L eGFR > 60 BUN/Creatinine Ratio 16 Glucose 100 Calculated Osmolality 268 L Calcium 8.8 Corrected Calcium 9.0 Phosphorus 3.1 Magnesium 2.0 Total Bilirubin 1.0 AST 24 ALT 17 Alkaline Phosphatase 78 Total Protein 7.0 Albumin 3.8 Globulin 3.2 Albumin/Globulin Ratio 1.2 Blood Type Antibody Screen Antibody Identification Anti-K Crossmatch See Detail Blood Bank Wristband ID Yes Quality Measures Quality Measures none Advance care planning discussed with:: patient Assessment & Plan Assessment Current Active Medications: Generic Name Dose Route Start Last Admin Trade Name Freq PRN Reason Stop Dose Admin Acetaminophen 650 mg 03/23/24 19:43 Acetaminophen 325 Mg Tablet PO 04/22/24 19:42 Q6H PRN Pain 1-3 and/or Fever >100.1 Hydromorphone HCl 0.5 mg 03/24/24 08:56 03/25/24 10:08 Hydromorphone Inj 2 Mg/Ml Vial IVP 03/28/24 19:48 0.5 mg Q2H PRN Administration PAIN 9-10 Ketorolac Tromethamine 30 mg 03/23/24 19:48 03/24/24 01:16 Ketorolac Inj 30 Mg/Ml Vial IVP 03/28/24 19:47 30 mg Q6HR PRN Administration Pain 4-6 Morphine Sulfate 1 mg 03/23/24 19:49 03/24/24 06:10 Morphine Sulf Inj 10 Mg/Ml Vial IVP 03/28/24 19:42 1 mg Q4HR PRN Administration Pain Scale 7-8 Ondansetron HCl 4 mg 03/23/24 19:43 03/23/24 20:02 Ondansetron Inj 2 Mg/Ml Inj 2 Ml IV 04/22/24 19:42 4 mg Q6H PRN Administration NAUSEA OR VOMITING Protocol Pantoprazole Sodium 40 mg 03/24/24 09:00 03/25/24 08:48 Pantoprazole Inj 40 Mg Vial IVP 04/23/24 08:59 40 mg QDAY MARCK Administration Sennosides 1 tab 03/25/24 09:00 Senna Tablet PO 04/24/24 08:59 QDAY PRN constipation Protocol Plan In summary: 78-year-old female PMHx of osteoporosis and mitral valve prolapse admitted for right hip fracture secondary to ground-level fall. Patient deemed low cardiac risk for surgery by cardiology. Pending OR with ORTHO today. R hip fracture Ground level fall Acute pain due to trauma Right hip fracture secondary to ground-level fall. Fracture wasn't seen on x- ray, however CT pelvic showed acute right hip fracture involving left femoral neck and possible greater trochanter. Low cardiac risk for surgery per cardiology. ? Pain control ? Ordered 2 unit of blood as well as type and screen per ORTHO recommendations ? Continue n.p.o. for surgery later today. History of Osteoporosis Right hip pain Chronic, history of osteoporosis, not currently medicated. Follows Dr. SMITH outpatient for right hip pain. Patient also has a history of shuffling gait per daughter. However, no definitive diagnosis has been made. Unable to assess gait abnormality at this time. ? Continue to follow with Dr. Gonzales outpatient Mitral Valve Prolapse History of, follows Dr. Fortune outpatient. Currently asymptomatic. Cardiology evaluation completed. Patient low cardiac risk for surgery per cardiology. ? Continue to monitor Health maintenance Diet: Cardiac, n.p.o. midnight 03/25 GI prophylaxis: PROTONIX DVT prophylaxis: SCDs Antibiotics: Not indicated CODE STATUS: Full code Disposition: OR with Dr. Bach Patient case was discussed with attending, Dr. Pedro Gonzales DO and senior residents Dr. Starr and Dr. Tavera. Alona Al DO PGYI Attending Provider Attestation/Addendum I have discussed and was present for the essential components of the history, physical examination, diagnosis, and treatment plan with the resident. I agree with the patient's care as documented by the resident and amended herein by me. Albino Gonzales DO. Although this document has been carefully reviewed, there may still be some phonetic and other typographical errors. These errors are purely grammatical due to imperfections in the software program and should not be construed in any way to compromise the substance of the patient's medical care during this visit.
--- NOTE | 2024-03-25 12:15 | XR_ITS ---
Examination: Right hip AP lateral 4 views Fluoroscopy Exam date and time: March 25, 2024 1427 hrs. Indications: Patient fell March 23, 2024 with acute right hip fracture on CT examination pelvis Operative reduction internal fixation hip fracture today Technique And Findings: 4 spot fluoroscopic AP lateral hip films Fluoroscopy 91 seconds, radiation dose 9.64 milligray Operative reduction internal fixation right hip fracture with anatomic alignment Impression: Operative reduction internal fixation right hip fracture with anatomic alignment
--- NOTE | 2024-03-25 14:07 | XR_ITS ---
Examination:Right hip AP, lateral, AP pelvis 3 views, right femur AP lateral 2 views Technique: Hip AP lateral, AP pelvis, 3 views, right femur AP lateral 2 views total 5 views Exam date and time:March 25, 2024 1447 hrs.. Findings: History acute right hip fracture March 23, 2024, postop reduction internal fixation hip fracture today. Findings: Postop reduction internal fixation right hip fracture with anatomic alignment Orthopedic hardware including long intramedullary todd satisfactory position relative to the 2 femoral shaft Left hip bones of the pelvis intact Impression: Postop reduction internal fixation right hip fracture with anatomic alignment
--- NOTE | 2024-03-25 14:08 | ESOP_ITS ---
Date of Procedure 03/25/24 Pre Op Diagnosis Undisplaced intertrochanter fracture right hip Post Op Diagnosis Same Procedure Open reduction internal fixation with trochanteric fixation nail. Synthes implant. Nail size 360 mm long by 12 mm diameter. Helical blade size 90 mm Findings Refer dictation Procedure Description Patient was given spinal anesthesia. Was satisfactory anesthesia achieved patient was put on fracture table. The patient was lightly secured on the fracture table. The fracture was checked under C arm in both AP and lateral and found to be extremely good Part was thoroughly prepped and draped. Intravenous antibiotics was given at the time of anesthesia After thoroughly prepping and draping the part a skin incision was made about 2 inches proximal to greater trochanter extending proximally for further inch and a half or 2. Deeper dissection was carried out. Tensor fascia belia was incised in the line of his skin incision Under C-arm guidance a guidepin was passed from the greater trochanter into the lesser trochanteric area and checked under C arm in both AP and lateral. Once satisfactory position achieved then reaming up to the lesser trochanter was done. Following that guidepin was removed and guidewire was passed. Once satisfactory position was achieved and length of the nail was measured and decided to be 360 mm long nail express target size 11.5 mm sequential reaming was done up to 13.5 mm. Final decision was made to use size 360 mm x 12 mm diameter nail. The above-mentioned size nail was slowly advanced into the marrow canal. Once satisfactory position was achieved then the Zick for the placement of the helical blade was used. Another skin incision was made on the lateral aspect of the thigh. The length of the incision was about inch and a half or so. Deeper dissection was carried out. Tensor fascia belia was incised Following that the jig was placed adjacent to the lateral cortex of the femur A guidepin was passed up to the subchondral portion of the head of the femur. Once satisfactory position was achieved and checked under C arm in both AP and lateral the length of the call blade was measured. Next decision was made to use size 19 mm long helical blade The lateral cortex was breached. Following that the reaming up to the subchondral portion of the head of the femur was done Size 90 mm long helical blade was mounted and slowly advanced into the marrow canal. Once satisfactory position was achieved then the placement jig was removed With the help of flexible screwdriver the to screw was tightened. With the help of fixed a screwdriver the placement jig was removed Wound was irrigated with antibiotic solution every 4 to 5 minutes After cleaning the wound with hydrogen peroxide solution a sterile dressing was applied Patient tolerated procedure well. Estimated blood loss 200 mL Anesthesia spinal Pathology / specimen None Estimated Blood Loss 200 Surgeon Jonah Miller MD Surgical Staff Operation Date: 03/25/24 12:15 Case Staff Anesthesiologist: Juan Moreira RNequipment operating engineer: Marissa Bradley
--- NOTE | 2024-03-25 14:37 | PD.ANESPROG ---
Documentation for date of: 03/25/24 ANESTHESIA NOTE: Patient had spinal anesthesia with intrathecal Duramorph (at 12:55 pm) and R fascia iliaca block and monitored sedation for R TFN. She did well intra-op. She received 2 gm IV Ancef intra-op, 250 cc Albumin 5%, 600 cc LR, and TXA. She had diaper with drainage tube that was converted to Dawn intra-op. She is currently in PACU doing well, resting comfortably, VSS, NAD. I've placed spinal orders for 24 hrs in addition to pre-existing IV Dilaudid order on the floor. Juan Moreira MD Anesthesia Progress Note Progress Note Most recent Vital Signs: Last Vital Signs Temp 97.3 F 03/25/24 07:40 Pulse 74 03/25/24 07:40 Resp 16 03/25/24 07:40 BP 98/62 03/25/24 07:40 Pulse Ox 94 L 03/25/24 07:40 O2 Del Method Room Air 03/25/24 07:40
--- NOTE | 2024-03-25 15:25 | SUR.PHASEI ---
pt awake and alert, breathing unlabored on 2l nc. v/s stable. pt dressing to right hip cdi. report called to Dane BRITO. pt will be transferred to room at this time.
[2024-03-25] MEDS: ceFAZolin/D5W 1 GM IVPB 1 GM/50 ML BAG IV ×2 (15:49→22:47)
--- NOTE | 2024-03-25 17:46 | ESCONSULT_ITS ---
RE: LORENA SPAIN : 1945 DATE OF CONSULTATION: 03/24/2024 Thank you, Dr. Charles Appiah for asking me to consult this patient whom I saw on 03/24/2024. HISTORY OF PRESENT ILLNESS: As per history available, the patient sustained a ground level fall on 03/23/2024. Subsequent to that, the patient was able to walk on the right lower limb. The patient felt pain in the right groin area. The patient was brought to the emergency room and x-ray was obtained. It revealed doubtful fracture of the intertrochanteric region. Therefore, CT scan was obtained, which confirmed undisplaced fracture of the right hip. PAST MEDICAL HISTORY: The patient denies any history of diabetes mellitus, high blood pressure, asthma, seizure, chest pain, myocardial infarction. The patient has a history of mitral valve prolapse for which Dr. Fortune is following. PAST SURGICAL HISTORY: Nil. DRUG HISTORY: Nil. ALLERGIES: NIL KNOWN. FAMILY HISTORY AND SOCIAL HISTORY: The patient denies smoking, drinking and is not working. PHYSICAL EXAMINATION: GENERAL: Normal built lady. The patient is fully alert and oriented. When I saw the patient, her daughter was there and it was okay with the patient to talk in front of her daughter. VITAL SIGNS: Pulse 68 per minute. Blood pressure 126/84. NECK: Soft, supple. No mass felt. Trachea is centrally placed. CARDIOVASCULAR SYSTEM: First and second heart sounds are normal. No murmur heard. RESPIRATORY SYSTEM: Bilateral vascular breath sounds. CHEST: Clear. ABDOMEN: Soft, normocephalic. Bowel sounds present. BREAST: Exam is not indicated in this case. The patient is advised to see the family physician for regular examination. EXTREMITIES: Right lower limb including hip examination revealed tenderness in the right groin area. Dorsalis pedis artery and posterior tibial artery is palpable. DIAGNOSTIC DATA: X-ray of the right hip and CT scan of the right hip confirm undisplaced intertrochanteric fracture of the right hip. Diagnosis and prognosis were explained to the patient in detail. Surgical fixation with nail and the screw was explained with the help of pictures and diagram, it was explained to them in detail. Risks with anesthesia was explained and that includes, but not limited to reaction to anesthetic agents, cardiac arrest and rarely it might be fatal. Risks with operation includes infection and if that happens, the patient may need further surgical pressure. Other risks include delayed healing, wound dehiscence etc. Sometime deep venous thrombosis and pulmonary embolus may be present and that could be fatal. No guarantees given regarding the outcome of the procedure and/or healing process. Cardiology consult was also obtained. Accordingly, surgery is booked for 03/25/2024. Dr. Lucy Fortune has cleared her for surgical procedure. DT: 14:16:33 TT: 17:44:00 Ref: [id number] - TID: [id number]
[2024-03-25] MEDS: HYDROcodone/APAP 5/325 TABLET 1 TAB PO (22:47)
[2024-03-26] VITALS (7 sets, daily range): BP systolic 94–122; BP diastolic 41–69; PULSE 54–74; RESP 17–94; TEMP 36.2–37.2; O2SAT 92–95; BMI 23.0
[2024-03-26 05:47] LABS: Basophils % (Auto) 0 % (0-2.5); Eosinophils % (Auto) 0 % (0-10); Hematocrit 29.9 % (36.0-46.0); Hemoglobin 9.9 g/dL (12.0-16.0); Immature Granulocytes % (Auto) 1 % (0-0); Immature Granulocytes Auto 0.09 Thou/mm3 (0.00-0.00); Lymphocytes # (Auto) 0.7 Thou/mm3 (1.0-4.8); Lymphocytes % (Auto) 6 % (10-50); Mean Corpuscular HGB Conc 33.1 g/dl (31.0-37.0); Mean Corpuscular Hemoglobin 29.2 pg (25.0-35.0); Mean Corpuscular Volume 88 fL (80-100); Monocytes % (Auto) 8 % (0-12); Neutrophils # (Auto) 11.5 Thou/mm3 (1.8-7.7); Neutrophils % (Auto) 86 % (37-80); Nucleated Red Blood Cell % 0 /100 WBC (0); Platelet Count 123 Thou/mm3 (140-440); RDW Standard Deviation 44.5 fL (36.4-46.3); Red Blood Count 3.39 Miln/mm3 (4.00-5.20); White Blood Count 13.3 Thou/mm3 (3.6-11.0)
[2024-03-26 05:58] LABS: Alanine Aminotransferase 15 U/L (10-49); Albumin, Serum 3.7 gm/dL (3.4-4.8); Albumin/Globulin Ratio 1.4 (1.2-2.2); Alkaline Phosphatase 68 U/L (46-116); Anion Gap 8 (7-16); Aspartate Amino Transferase 23 U/L (0-34); BUN/Creatinine Ratio 20 Ratio (12-20); Bilirubin,Total 0.6 mg/dL (0.3-1.2); Blood Urea Nitrogen 16 mg/dL (9-23); Calcium (Corrected) 9.2 mg/dL (8.5-10.1); Carbon Dioxide 27.2 mMol/L (20.0-31.0); Chloride 98 mMol/L (98-107); Creatinine (Component) 0.8 mg/dL (0.6-1.3); Estimated Creatinine Clearance 52.5 mL/min (>60); Globulin 2.7 gm/dL (2.3-3.5); Glucose 116 mg/dL (74-106); Osmolality,Calculated 268 (275-295); Phosphorous 2.7 mg/dL (2.4-5.1); Potassium 4.3 mMol/L (3.4-5.1); Sodium 133 mMol/L (136-145); Total Protein 6.4 gm/dL (5.7-8.2); eGFR > 60 See Note
[2024-03-26] MEDS: PANTOPRAZOLE INJ 40 MG VIAL IVP (09:32)
--- NOTE | 2024-03-26 13:49 | ESPR_ITS ---
Documentation for date of: 03/26/24 Subjective Subjective Interval history: No acute overnight events. POD 1 ORIF right hip. Pain controlled. Tolerating clear liquid diet without nausea or vomiting. Passing flatus but no bowel movement yet. Pending physical therapy. Denies fever, chills, headaches, chest pain, sob, cough, GI or urinary symptoms. Exam Vital Signs Temp Pulse Resp BP Pulse Ox O2 Del Method O2 Flow Rate 97.3 F 62 18 113/69 93 L Room Air 2 03/26/24 12:03/26/24 12:03/26/24 12:03/26/24 12:03/26/24 12:00 03/26/24 12:00 03/25/24 15:15 Narrative Exam GENERAL: Normal appearing elderly female, appears comfortable HEENT: NCAT.?THEE. Oral mucosa is moist. Patent Nares NECK: Supple, nontender, no thyromegaly, no meningismus, no JVD, no step offs CHEST: Symmetrical, atraumatic, and with equal expansion, Nontender on palpation no deformity and no crepitus. CARDIOVASCULAR: RRR, no m/g/r LUNGS: CTAB, no w/r/r. Symmetrical chest rise. No intercostal subcostal retraction. ABDOMEN: Soft, flat, nontender. No guarding/rebound tenderness/masses. +BS EXTREMITIES: Hip binder and dressing intact, dry and in place. No edema/cyanosis. Able to move her extremity compared to presurgery. Sensation intact throughout. SKIN: Warm and dry, no jaundice/rashes. MSK: No lumbar or midline, no CVA, no paraspinal muscle spasm or tenderness. NEURO: REINA x4, CN II-XII grossly intact.?No focal neurologic deficits. PSYCHIATRIC: Normal mood and affect, cooperative, no SI or HI or hallucinations. Objective Labs 03/26/24 05:04 03/26/24 05:04 Labs: Laboratory Results - last 24 hr 03/26/24 05:04 WBC 13.3 H RBC 3.39 L Hgb 9.9 L Hct 29.9 L MCV 88 MCH 29.2 MCHC 33.1 RDW Std Deviation 44.5 Plt Count 123 L D Neut % (Auto) 86 H Lymph % (Auto) 6 L [place] % (Auto) 8 Eos % (Auto) 0 Baso % (Auto) 0 Neut # (Auto) 11.5 H Lymph # (Auto) 0.7 L [place] # (Auto) 1.0 H Eos # (Auto) 0.0 Baso # (Auto) 0.0 Immature Gran # (Auto) 0.09 H Absolute Nucleated RBC 0.00 Immature Gran % 1 H Nucleated RBC % 0 Sodium 133 L Potassium 4.3 Chloride 98 Carbon Dioxide 27.2 Anion Gap 8 BUN 16 Creatinine 0.8 Estim Creat Clear Calc 52.5 L eGFR > 60 BUN/Creatinine Ratio 20 Glucose 116 H Calculated Osmolality 268 L Calcium 9.0 Corrected Calcium 9.2 Phosphorus 2.7 Magnesium 2.0 Total Bilirubin 0.6 AST 23 ALT 15 Alkaline Phosphatase 68 Total Protein 6.4 Albumin 3.7 Globulin 2.7 Albumin/Globulin Ratio 1.4 Quality Measures Quality Measures none Advance care planning discussed with:: patient Assessment & Plan Assessment Current Active Medications: Generic Name Dose Route Start Last Admin Trade Name Freq PRN Reason Stop Dose Admin Acetaminophen 650 mg 03/23/24 19:43 Acetaminophen 325 Mg Tablet PO 04/22/24 19:42 Q6H PRN Pain 1-3 and/or Fever >100.1 Aspirin 81 mg 03/26/24 21:00 Aspirin Ec 81 Mg Tabec PO 04/25/24 20:59 BID MARCK Diphenhydramine HCl 12.5 mg 03/25/24 13:59 Diphenhydramine Inj 50 Mg/Ml Vial IVP 03/26/24 13:58 Q4HR PRN ITCHING Hydromorphone HCl 0.5 mg 03/24/24 08:56 03/25/24 10:08 Hydromorphone Inj 2 Mg/Ml Vial IVP 03/28/24 19:48 0.5 mg Q2H PRN Administration PAIN 9-10 Lactated Ringer's 1,000 mls @ 500 mls/hr 03/25/24 13:59 Lactated Ringers IV .Q2H PRN HYPOTENSION Ketorolac Tromethamine 30 mg 03/23/24 19:48 03/24/24 01:16 Ketorolac Inj 30 Mg/Ml Vial IVP 03/28/24 19:47 30 mg Q6HR PRN Administration Pain 4-6 Morphine Sulfate 1 mg 03/23/24 19:49 03/24/24 06:10 Morphine Sulf Inj 10 Mg/Ml Vial IVP 03/28/24 19:42 1 mg Q4HR PRN Administration Pain Scale 7-8 Naloxone HCl 0.1 mg 03/25/24 14:40 Naloxone Inj 1 Mg/Ml Syringe 2 Ml IV 03/26/24 14:39 PRN PRN OPIATE REVERSAL Ondansetron HCl 4 mg 03/25/24 15:30 Ondansetron Inj 2 Mg/Ml Inj 2 Ml IV 04/24/24 15:29 Q6HR PRN NAUSEA OR VOMITING Pantoprazole Sodium 40 mg 03/24/24 09:00 03/26/24 09:32 Pantoprazole Inj 40 Mg Vial IVP 04/23/24 08:59 40 mg QDAY MARCK Administration Sennosides 1 tab 03/25/24 09:00 Senna Tablet PO 04/24/24 08:59 QDAY PRN constipation Protocol Plan In summary: 78-year-old female PMHx of osteoporosis and mitral valve prolapse admitted for right hip fracture secondary to ground-level fall. Patient deemed low cardiac risk for surgery by cardiology. S/p ORIF. Pain controlled. Pending physical therapy evaluation and ORTHO recommendations. R hip fracture Ground level fall Acute pain due to trauma POD 1 ORIF right hip Right hip fracture secondary to ground-level fall. Fracture wasn't seen on x- ray, however CT pelvic showed acute right hip fracture involving left femoral neck and possible greater trochanter. Low cardiac risk for surgery per cardiology. Doing well postoperatively, pain controlled, tolerating clear liquids without nausea or vomiting. Passing flatus but no stool. Will see physical therapy later today. ORTHO recommended starting ASPIRIN as below. ? Pain control ? Continue ASPIRIN 81 mg BID ? Clear liquid, drains as tolerated History of Osteoporosis Right hip pain Chronic, history of osteoporosis, not currently medicated. Follows Dr. SMITH outpatient for right hip pain. Patient also has a history of shuffling gait per daughter. However, no definitive diagnosis has been made. Unable to assess gait abnormality at this time. ? Continue to follow with Dr. Gonzales outpatient Mitral Valve Prolapse History of, follows Dr. Fortune outpatient. Currently asymptomatic. Cardiology evaluation completed. Patient low cardiac risk for surgery per cardiology. ? Continue to monitor Health maintenance Diet: Cardiac, n.p.o. midnight 03/25 GI prophylaxis: PROTONIX DVT prophylaxis: SCDs Antibiotics: Not indicated CODE STATUS: Full code Disposition: OR with Dr. Bach Patient case was discussed with attending, Dr. Pedro Gonzales DO and senior residents Dr. Starr and Dr. Tavera. Alona Al DO PGYI Attending Provider Attestation/Addendum I have discussed and was present for the essential components of the history, physical examination, diagnosis, and treatment plan with the resident. I agree with the patient's care as documented by the resident and amended herein by me. Albino Gonzales DO. Although this document has been carefully reviewed, there may still be some phonetic and other typographical errors. These errors are purely grammatical due to imperfections in the software program and should not be construed in any way to compromise the substance of the patient's medical care during this visit.
[2024-03-26] MEDS: HYDROmorphone INJ 2 MG/ML VIAL 0.5 MG IVP ×3 (14:47→22:23)
--- NOTE | 2024-03-26 14:58 | PC.SS ---
Rounding: POD #1, pending Dr. Mikala jimenez
[2024-03-26] MEDS: ASPIRIN EC 81 MG TABEC PO (20:08)
[2024-03-26] MEDS: SENNA TABLET 1 TAB PO (20:14)
[2024-03-27] VITALS (8 sets, daily range): BP systolic 93–125; BP diastolic 56–79; PULSE 70–99; RESP 16–92; TEMP 36.3–37; O2SAT 88–92; BMI 12.0
[2024-03-27] MEDS: HYDROmorphone INJ 2 MG/ML VIAL 0.5 MG IVP ×3 (01:59→16:29)
[2024-03-27] MEDS: ONDANSETRON INJ 2 MG/ML INJ 2 ML 4 MG IV ×2 (05:31→17:05)
[2024-03-27 06:01] LABS: Basophils % (Auto) 0 % (0-2.5); Eosinophils # (Auto) 0.1 Thou/mm3 (0.0-0.5); Eosinophils % (Auto) 1 % (0-10); Hematocrit 30.9 % (36.0-46.0); Hemoglobin 10.5 g/dL (12.0-16.0); Immature Granulocytes % (Auto) 1 % (0-0); Immature Granulocytes Auto 0.09 Thou/mm3 (0.00-0.00); Lymphocytes # (Auto) 1.1 Thou/mm3 (1.0-4.8); Lymphocytes % (Auto) 10 % (10-50); Mean Corpuscular Hemoglobin 28.9 pg (25.0-35.0); Mean Corpuscular Volume 85 fL (80-100); Monocytes # (Auto) 0.8 Thou/mm3 (0.0-0.8); Monocytes % (Auto) 7 % (0-12); Neutrophils # (Auto) 9.7 Thou/mm3 (1.8-7.7); Neutrophils % (Auto) 82 % (37-80); Nucleated Red Blood Cell % 0 /100 WBC (0); Platelet Count 125 Thou/mm3 (140-440); RDW Standard Deviation 44.1 fL (36.4-46.3); Red Blood Count 3.63 Miln/mm3 (4.00-5.20); White Blood Count 11.8 Thou/mm3 (3.6-11.0)
[2024-03-27 07:10] LABS: Alanine Aminotransferase 18 U/L (10-49); Albumin, Serum 3.4 gm/dL (3.4-4.8); Albumin/Globulin Ratio 1.3 (1.2-2.2); Alkaline Phosphatase 75 U/L (46-116); Anion Gap 5 (7-16); Aspartate Amino Transferase 32 U/L (0-34); BUN/Creatinine Ratio 21 Ratio (12-20); Bilirubin,Total 0.8 mg/dL (0.3-1.2); Blood Urea Nitrogen 15 mg/dL (9-23); Calcium 9.8 mg/dL (8.3-10.6); Calcium (Corrected) 10.3 mg/dL (8.5-10.1); Carbon Dioxide 26.9 mMol/L (20.0-31.0); Chloride 99 mMol/L (98-107); Creatinine (Component) 0.7 mg/dL (0.6-1.3); Globulin 2.7 gm/dL (2.3-3.5); Glucose 105 mg/dL (74-106); Magnesium 1.9 mg/dL (1.6-2.6); Osmolality,Calculated 263 (275-295); Potassium 4.2 mMol/L (3.4-5.1); Sodium 131 mMol/L (136-145); Total Protein 6.1 gm/dL (5.7-8.2); eGFR > 60 See Note
[2024-03-27 07:25] LABS: Phosphorous 2.6 mg/dL (2.4-5.1)
--- NOTE | 2024-03-27 09:01 | PC.SS ---
Addendum entered by NIRANJAN Gtz 03/27/24 09:36: NIRANJAN met with patient to provide update. Patient agreeable with d/c to [facility] when ready. Medicare rights reviewed with the patient. Original Note: SS follow up: contacted Rain at [facility], informs they have two female beds available today on first come first serve basis. Patient is pending recommendations from surgeon prior to discharge.
--- NOTE | 2024-03-27 09:18 | ESPR_ITS ---
RE: LORENA SPAIN : 1945 DATE OF SERVICE: 03/25/2024 SUBJECTIVE: Lorena Spain is an 78-year-old lady who admitted to the hospital with ___ no complications following surgery. She is pain free. Not complaining of any shortness of breath or chest pain. OBJECTIVE: Vital Signs: Vital signs remain stable. Blood pressure is 100/60. Pulse rate is 70. . Neck: Supple. No JVD. Lungs: Decreased breath sounds. No rhonchi. Heart: Heart sounds regular. Abdomen: Soft, RECOMMENDATIONS: 1. Continue medical management. 2. Ambulate as tolerated. 3. Might consider doing low dose Eliquis 48 hours after the surgery DT: 16:57:34 TT: 18:13:00 Ref: [id number] - TID: [id number] MTDD
[2024-03-27] MEDS: ASPIRIN EC 81 MG TABEC PO ×2 (09:30→20:11)
[2024-03-27] MEDS: PANTOPRAZOLE INJ 40 MG VIAL IVP (09:30)
[2024-03-27] MEDS: HYDROcodone/APAP 5/325 TABLET 1 TAB PO ×2 (11:20→20:10)
--- NOTE | 2024-03-27 12:05 | PD.RESDS ---
Planned Discharge Date 03/27/24 DS: Providers Provider Date of admission: 03/23/24 19:42 Primary care physician: Chapito Garsia MD Admitting Provider: Cornell Lopez MD Attending Provider on Admission: Cornell Lopez MD Consults: 03/23/24 19:10 Consult to Orthopedic Stat Comment: Consulting Provider: Jonah Miller 03/23/24 20:03 Referral Physical Therapy Routine Comment: Physician Instructions: 03/24/24 08:43 Consult to Cardiology Routine Comment: cardiac clearance Consulting Provider: Lucy Fortune 03/25/24 15:30 Referral Physical Therapy Routine Comment: Gait Training Physician Instructions: Instructions: both legs full weight bear Attending Provider on DC: Robby Tavera MD Discharging Provider: Robby Tavera MD Hospital Course Hospital Course Hospital course: No acute overnight events. POD 1 ORIF right hip. Pain controlled. Tolerating clear liquid diet without nausea or vomiting. Passing flatus but no bowel movement yet. Pending physical therapy. Denies fever, chills, headaches, chest pain, sob, cough, GI or urinary symptoms. Time Spent with Patient Time attestation: Total time spent providing and/or coordinating discharge services: Exam Vital Signs Temp Pulse Resp BP Pulse Ox O2 Del Method O2 Flow Rate 98.5 F 99 18 119/79 88 L Room Air 2 03/27/24 08:00 03/27/24 08:00 03/27/24 08:00 03/27/24 08:00 03/27/24 08:00 03/27/24 08:00 03/25/24 15:15 Discharge Plan Prescriptions/Referrals Referrals: Chapito Garsia MD [Primary Care Provider] - Patient/Caregiver Discharge Instructions Print Language: Trinidadian
[2024-03-27] MEDS: FAMOTIDINE 20 MG TABLET PO (12:41)
--- NOTE | 2024-03-27 14:17 | PC.SS ---
SS update: patient is pending a bowel movement and bandage change for wound prior to discharge.
--- NOTE | 2024-03-27 16:20 | PD.RESPRO ---
Documentation for date of: 03/27/24 Subjective Subjective Interval history: Patient interviewed and examined at bedside this a.m. accompanied by her daughter. Patient's labs vitals and chart were thoroughly reviewed prior to evaluation. No acute overnight events reported. Patient is postop day #2 status post ORIF for right sided hip fracture. Patient still with considerable amount of pain. Will continue pain regimen as currently prescribed with [place] 5/325 every 6 hours as needed for moderate pain and hydromorphone 0.5 mg IV every 2 hours as needed for severe pain. Patient also has not had a bowel movement since 04/23/2023. Will add lactulose to advance bowel movement. Anticipate the patient to be discharged in the next 24 hours after patient passes bowel movement for safe discharge. Patient will be discharged to SNF for continued PT. Will also continue anticoagulation with aspirin 81 mg twice daily as per orthopedic surgeons recommendations. Exam Vital Signs Temp Pulse Resp BP Pulse Ox O2 Del Method O2 Flow Rate 97.4 F 89 16 93/63 91 L Room Air 2 03/27/24 12:00 03/27/24 15:23 03/27/24 15:23 03/27/24 12:00 03/27/24 12:03/27/24 12:00 03/25/24 15:15 Narrative Exam GENERAL: Normal appearing elderly female, appears comfortable HEENT: NCAT.?THEE. Oral mucosa is moist. Patent Nares NECK: Supple, nontender, no thyromegaly, no meningismus, no JVD, no step offs CHEST: Symmetrical, atraumatic, and with equal expansion, Nontender on palpation no deformity and no crepitus. CARDIOVASCULAR: RRR, no m/g/r LUNGS: CTAB, no w/r/r. Symmetrical chest rise. No intercostal subcostal retraction. ABDOMEN: Soft, flat, nontender. No guarding/rebound tenderness/masses. +BS EXTREMITIES: Hip binder and dressing intact, dry and in place. No edema/cyanosis. Able to move her extremity compared to presurgery. Sensation intact throughout. SKIN: Warm and dry, no jaundice/rashes. MSK: No lumbar or midline, no CVA, no paraspinal muscle spasm or tenderness. NEURO: REINA x4, CN II-XII grossly intact.?No focal neurologic deficits. PSYCHIATRIC: Normal mood and affect, cooperative, no SI or HI or hallucinations. Objective Labs 03/27/24 05:01 03/27/24 05:01 Labs: Laboratory Results - last 24 hr 03/24/24 03/27/24 14:00 05:01 WBC 11.8 H RBC 3.63 L Hgb 10.5 L Hct 30.9 L MCV 85 MCH 28.9 MCHC 34.0 RDW Std Deviation 44.1 Plt Count 125 L Neut % (Auto) 82 H Lymph % (Auto) 10 [place] % (Auto) 7 Eos % (Auto) 1 Baso % (Auto) 0 Neut # (Auto) 9.7 H Lymph # (Auto) 1.1 [place] # (Auto) 0.8 Eos # (Auto) 0.1 Baso # (Auto) 0.0 Immature Gran # (Auto) 0.09 H Absolute Nucleated RBC 0.00 Immature Gran % 1 H Nucleated RBC % 0 Sodium 131 L Potassium 4.2 Chloride 99 Carbon Dioxide 26.9 Anion Gap 5 L BUN 15 Creatinine 0.7 Estim Creat Clear Calc 60.0 L eGFR > 60 BUN/Creatinine Ratio 21 H Glucose 105 Calculated Osmolality 263 L Calcium 9.8 Corrected Calcium 10.3 H Phosphorus 2.6 Magnesium 1.9 Total Bilirubin 0.8 AST 32 ALT 18 Alkaline Phosphatase 75 Total Protein 6.1 Albumin 3.4 Globulin 2.7 Albumin/Globulin Ratio 1.3 Crossmatch See Detail Quality Measures Quality Measures none Advance care planning discussed with:: patient and child Assessment & Plan Assessment Current Active Medications: Generic Name Dose Route Start Last Admin Trade Name Freq PRN Reason Stop Dose Admin Acetaminophen 650 mg 03/27/24 11:06 Acetaminophen 325 Mg Tablet PO 04/22/24 19:42 Q6H PRN Pain 1-3 and/or Fever >100.4 Hydrocodone Bitart/Acetaminophen 1 tab 03/27/24 11:08 03/27/24 11:20 Hydrocodone/[place] 5/325 Tablet PO 04/01/24 11:02 1 tab Q6HR PRN Administration PAIN SCALE 7-10(Mod-Sev) Aspirin 81 mg 03/26/24 21:00 03/27/24 09:30 Aspirin Ec 81 Mg Tabec PO 04/25/24 20:59 81 mg BID MARCK Administration Famotidine 20 mg 03/27/24 12:05 03/27/24 12:41 Famotidine 20 Mg Tablet PO 04/26/24 12:04 20 mg QDAY MARCK Administration Hydromorphone HCl 0.5 mg 03/27/24 15:37 Hydromorphone Inj 2 Mg/Ml Vial IVP 04/01/24 11:04 Q4HR PRN BREAKTHROUGH PAIN 7-10 Lactated Ringer's 1,000 mls @ 500 mls/hr 03/25/24 13:59 Lactated Ringers IV .Q2H PRN HYPOTENSION Ketorolac Tromethamine 30 mg 03/23/24 19:48 03/24/24 01:16 Ketorolac Inj 30 Mg/Ml Vial IVP 03/28/24 19:47 30 mg Q6HR PRN Administration Pain 4-6 Ondansetron HCl 4 mg 03/25/24 15:30 03/27/24 05:31 Ondansetron Inj 2 Mg/Ml Inj 2 Ml IV 04/24/24 15:29 4 mg Q6HR PRN Administration NAUSEA OR VOMITING Sennosides 1 tab 03/25/24 09:00 03/26/24 20:14 Senna Tablet PO 04/24/24 08:59 1 tab QDAY PRN Administration constipation Protocol Plan In summary: 78-year-old female PMHx of osteoporosis and mitral valve prolapse admitted for right hip fracture secondary to ground-level fall. Patient deemed low cardiac risk for surgery by cardiology. S/p ORIF. Pain controlled. Pending physical therapy evaluation and ORTHO recommendations. R hip fracture s/p ORIF POD #2 Ground level fall Acute pain due to trauma Right hip fracture secondary to ground-level fall. Fracture wasn't seen on x-ray, however CT pelvic showed acute right hip fracture involving left femoral neck and possible greater trochanter. Low cardiac risk for surgery per cardiology. Doing well postoperatively, pain controlled, tolerating clear liquids without nausea or vomiting. Passing flatus but no stool. Will see physical therapy later today. ORTHO recommended starting ASPIRIN as below. ? Pain management: [place] 5/325 every 6 hours as needed for moderate pain and hydromorphone 0.5 mg IV every 2 hours as needed for severe pain ? Continue ASPIRIN 81 mg BID for anticoagulation ? Regular diet Osteoporosis Right hip pain Chronic, history of osteoporosis, not currently medicated. Follows Dr. SMITH outpatient for right hip pain. Patient also has a history of shuffling gait per daughter. However, no definitive diagnosis has been made. Unable to assess gait abnormality at this time. ? Continue to follow with Dr. Christian morales Constipation Most likely secondary to decreased ambulation and pain medications. Will administer lactulose 20 mg x 1 to advance a bowel movement. Patient can be discharged after bowel movement Mitral Valve Prolapse History of, follows Dr. Fortune outpatient. Currently asymptomatic. Cardiology evaluation completed. Patient low cardiac risk for surgery per cardiology. ? Continue to monitor Health maintenance Diet: Regular diet GI prophylaxis: PROTONIX DVT prophylaxis: SCDs, aspirin 81 mg p.o. twice daily Antibiotics: Not indicated CODE STATUS: Full code Disposition: Patient is postop day #2 status post ORIF. Patient has not had BM in several days. Will await patient having a bowel movement to proceed with safe discharge. Patient's case was discussed with supervising attending physician Dr. Christian Pope M.D. Internal Medicine PGY-3 Attending Provider Attestation/Addendum I have discussed and was present for the essential components of the history, physical examination, diagnosis, and treatment plan with the resident. I agree with the patient's care as documented by the resident and amended herein by me. Albino Gonzales DO. Vital signs stable, patient afebrile overnight, WBC downtrending, hemoglobin stable. Patient is passing gas however has not had a BM yet. Pain is well-controlled, will continue aspirin 81 mg twice daily for now, appreciate surgical recommendations, once patient has BM, can be discharged to SNF. Although this document has been carefully reviewed, there may still be some phonetic and other typographical errors. These errors are purely grammatical due to imperfections in the software program and should not be construed in any way to compromise the substance of the patient's medical care during this visit.
[2024-03-27] MEDS: LACTULOSE SYRUP 20 GM/30 ML UDC PO (17:05)
[2024-03-27] MEDS: SENNA TABLET 1 TAB PO (20:10)
[2024-03-28] VITALS (7 sets, daily range): BP systolic 97–114; BP diastolic 54–71; PULSE 66–83; RESP 16–93; TEMP 36.2–36.6; O2SAT 91–96; BMI 11.0
[2024-03-28] MEDS: HYDROcodone/APAP 5/325 TABLET 1 TAB PO ×3 (02:52→14:51)
[2024-03-28 05:46] LABS: Basophils % (Auto) 0 % (0-2.5); Eosinophils % (Auto) 0 % (0-10); Hemoglobin 10.1 g/dL (12.0-16.0); Immature Granulocytes % (Auto) 1 % (0-0); Immature Granulocytes Auto 0.07 Thou/mm3 (0.00-0.00); Lymphocytes # (Auto) 1.3 Thou/mm3 (1.0-4.8); Lymphocytes % (Auto) 11 % (10-50); Mean Corpuscular HGB Conc 33.7 g/dl (31.0-37.0); Mean Corpuscular Hemoglobin 28.8 pg (25.0-35.0); Mean Corpuscular Volume 86 fL (80-100); Monocytes % (Auto) 9 % (0-12); Neutrophils # (Auto) 9.3 Thou/mm3 (1.8-7.7); Neutrophils % (Auto) 80 % (37-80); Nucleated Red Blood Cell % 0 /100 WBC (0); Platelet Count 152 Thou/mm3 (140-440); RDW Standard Deviation 44.3 fL (36.4-46.3); Red Blood Count 3.51 Miln/mm3 (4.00-5.20); White Blood Count 11.7 Thou/mm3 (3.6-11.0)
[2024-03-28 06:11] LABS: Alanine Aminotransferase 32 U/L (10-49); Albumin, Serum 3.5 gm/dL (3.4-4.8); Albumin/Globulin Ratio 1.3 (1.2-2.2); Alkaline Phosphatase 78 U/L (46-116); Anion Gap 5 (7-16); Aspartate Amino Transferase 37 U/L (0-34); BUN/Creatinine Ratio 17 Ratio (12-20); Blood Urea Nitrogen 12 mg/dL (9-23); Calcium 8.7 mg/dL (8.3-10.6); Calcium (Corrected) 9.1 mg/dL (8.5-10.1); Carbon Dioxide 29.9 mMol/L (20.0-31.0); Chloride 96 mMol/L (98-107); Creatinine (Component) 0.7 mg/dL (0.6-1.3); Globulin 2.8 gm/dL (2.3-3.5); Glucose 111 mg/dL (74-106); Magnesium 2.1 mg/dL (1.6-2.6); Osmolality,Calculated 263 (275-295); Phosphorous 3.8 mg/dL (2.4-5.1); Potassium 4.2 mMol/L (3.4-5.1); Sodium 131 mMol/L (136-145); Total Protein 6.3 gm/dL (5.7-8.2); eGFR > 60 See Note
[2024-03-28] MEDS: ASPIRIN EC 81 MG TABEC PO (08:53)
[2024-03-28] MEDS: FAMOTIDINE 20 MG TABLET PO (08:53)
--- NOTE | 2024-03-28 08:55 | PC.SS ---
SS update: patient is pending bowel movement and dressing change.
[2024-03-28] MEDS: Milk Of Magnesia Susp 30 ML UDC PO (11:42)
[2024-03-28] MEDS: SENNA TABLET 2 TAB PO (11:42)
--- NOTE | 2024-03-28 13:55 | ESDS_ITS ---
<Statement entered by Kaylin Culver MD - 03/28/24 20:25> I discussed with and supervised my co-resident involved in the care of this patient. I agree with the assessment and plan as documented above. Kaylin Culver,PGY-3 Disclaimer: Despite multiple revisions, due to the dictation software being used, the document below may not be free of grammatical errors including phonetic/typographic errors. However, this does not deter from our commitment to providing health care in the patient's best interest in mind. Planned Discharge Date 03/28/24 DS: Providers Provider Date of admission: 03/23/24 19:42 Primary care physician: Chapito Garsia MD Admitting Provider: Cornell Lopez MD Attending Provider on Admission: Pedro Gonzales DO Consults: 03/23/24 19:10 Consult to Orthopedic Stat Comment: Consulting Provider: Jonah Miller 03/23/24 20:03 Referral Physical Therapy Routine Comment: Physician Instructions: 03/24/24 08:43 Consult to Cardiology Routine Comment: cardiac clearance Consulting Provider: Lucy Fortune 03/25/24 15:30 Referral Physical Therapy Routine Comment: Gait Training Physician Instructions: Instructions: both legs full weight bear Attending Provider on DC: Pedro Gonzales DO Discharging Provider: Pedro Gonzales DO DS: Diagnosis Problem List Completed Was Problem List Reviewed/Reconciled?: Yes Hospital Course Hospital Course Hospital course: 78-year-old female with past medical history of osteoporosis and mitral prolapse was admitted to the hospital on 03/23/2024 due to right hip fracture after ground-level fall. In the ED patient came in with complaints of falling after she took a misstep indication. Initially patient was afebrile and mildly hypert ensive. Initial labs were relevant for leukocytosis (11.5). Initial imaging included hip/pelvis x-ray which showed no definite acute right hip fracture and pelvis CT was recommended which showed an acute right hip fracture. Additional imaging included chest x-ray which did show some bronchitis pattern. Orthopedic surgeon performed a successful open reduction internal fixation with trochanteric fixation nail on 03/25/2024. Throughout the hospital stay patient remained stable, but she did not have a bowel movement since the day of admission therefore her discharge was delayed due to this. On the day of discharge patient had a large bowel movement and therefore was stable enough to be discharged to a care home facility to continue physical therapy. Discharge plan: Please follow-up with your primary care physician in 1 week after discharge. Please follow-up with orthopedic surgeon in 1 to 2 weeks. We have prescribed you oxycodone/acetaminophen 10/325 1 tablet every 8 hours as needed for pain. We have also added senna for constipation. Please continue taking aspirin 81 mg twice daily and famotidine 20 mg daily. Please return to the ER of symptoms persist or worsen. Problem list: #Right hip fracture s/p ORIF POD #2 #Ground-level fall #Osteoporosis #Constipation #Mitral valve prolapse Status at Discharge Overall status at discharge: patient is progressing back to baseline Time Spent with Patient Time attestation: Total time spent providing and/or coordinating discharge services:>35 min Exam Vital Signs Temp Pulse Resp BP Pulse Ox O2 Del Method O2 Flow Rate 97.1 F 79 18 114/71 96 Nasal Cannula 2 03/28/24 12:03/28/24 12:03/28/24 12:03/28/24 12:03/28/24 12:03/28/24 12:03/28/24 12:00 Narrative Exam General: A/O x3, no acute distress, well-nourished, well-developed Eyes: PERRL, EOMI. Anicteric, vision grossly intact. Ears: No ear pain, no ear discharge, Hearing grossly intact. Nose: No nasal discharge. Mouth/Throat: Moist mucous membranes, no redness, no lesions. Neck: Neck supple, non-tender, no cervical lymphadenopathy. Lungs: Clear QUINTON to auscultation and percussion, No accessory muscle use. Cardio: Normal S1/S2, regular rhythm, no murmurs, no JVD Abdomen: Soft, non-tender, no palpable masses, peristalsis present, no guarding or rebound. Extremities: Symmetrical, no significant deformities, no peripheral edema , non-tender, peripheral pulses presents, clean dressing along lateral R hip with mild tenderness to palpation. Skin: No rashes, no lesions, warm to touch. Neuro: No focal neurological deficits. motor and sensory intact. Psych: Cooperative, appropriate mood and effect. Discharge Plan Plan Patient Disposition: Xfer Skilled Nsg Fac (SNF) Patient condition on transfer: Stable Care Plan Goals: Please follow-up with your primary care physician in 1 week after discharge. Please follow-up with orthopedic surgeon in 1 to 2 weeks. We have prescribed you oxycodone/acetaminophen 10/325 1 tablet every 4 hours as needed for pain. We have also added senna for constipation. Please continue taking aspirin 81 mg twice daily and famotidine 20 mg daily. Please return to the ER of symptoms persist or worsen. Prescriptions/Referrals Prescriptions/Med Rec: New aspirin 81 mg Tablet,Delayed Release (Dr/Ec) 81 mg PO BID Qty: 60 0RF famotidine 20 mg Tablet 20 mg PO QDAY Qty: 30 0RF sennosides [Senna Lax] 8.6 mg Tablet 8.6 mg PO QDAY PRN (Reason: constipation) 5 Days Qty: 10 0RF hydrocodone-acetaminophen 10-325 mg tablet 1 tab PO Q4H MDD 6 PRN (Reason: pain) Qty: 30 0RF Referrals: Chapito Garsia MD [Primary Care Provider] - Jonah Miller MD [Physician] - Patient/Caregiver Discharge Instructions Meds to Beds: Yes Discharge Activity: as per physical therapy Other Discharge Activity Instructions:: Please follow-up with your primary care physician in 1 week after discharge. Please follow-up with orthopedic surgeon in 1 to 2 weeks. We have prescribed you oxycodone/acetaminophen 10/325 1 tablet every 8 hours as needed for pain. We have also added senna for constipation. Please continue taking aspirin 81 mg twice daily and famotidine 20 mg daily. Please return to the ER of symptoms persist or worsen. Education Materials: Dawn Catheter Removal, Using an Incentive Spirometer, After a Hip Fracture: Common Questions, Fx Hip Surg Hospital After, Fx Hip Surg Home Recovery, Preventing Surgical Site Infections, ED Mechanical Fall Print Language: Bangladeshi Stand Alone Forms: Rut Award Info., Patient Portal Info Letter Discharge Order Discharge Orders: Discharge (Routine); Ordered 03/28/24 Ordered By: Conor Gonzalez Quality Discharge Quality Measures VTE prophylaxis Attestestation Attestation I have discussed and was present for the essential components of the discharge history, physical examination, diagnosis, and discharge treatment plan with the resident. I agree with the patient's discharge care as documented by the resident and amended herein by me. Albino Gonzales DO. The patient understood all discharge instructions, all questions were answered satisfactorily. The patient was instructed to return to the Emergency Department is symptoms worsened or persisted. Patient was stable, afebrile, tolerating p.o. intake and mobile at time of discharge. Patient did have a bowel movement prior to discharge to SNF. Patient will be discharged with a short course of pain medication, aspirin 81 mg twice daily and will need to follow-up with her primary care provider and orthopedic surgery within 7 to 10 days of discharge to SNF. All questions Although this document has been carefully reviewed, there may still be some phonetic and other typographical errors. These errors are purely grammatical due to imperfections in the software program and should not be construed in any way to compromise the substance of the patient's medical care during this visit.
--- NOTE | 2024-03-28 14:17 | PC.SS ---
Addendum entered by NIRANJAN Gtz 03/28/24 15:28: Sent PAS[facility] and orders via [employer] to [facility] per their request. Addendum entered by NIRANJAN Gtz 03/28/24 15:19: Patient's family requesting gurney transport. JUAN obtained. ETA with [facility] 6pm. Updated [facility] staff Jennifer and bed side nurse Leilani. Addendum entered by NIRANJAN Gtz 03/28/24 15:12: Met with patient to confirm the d/c plan to [facility] today, she was agreeable. Transportation to be scheduled. Original Note: Rounding note: patient had bowel movement, ready for discharge.
--- NOTE | 2024-03-28 14:38 | PC.NURSE ---
Spoke with Dr Bach regarding dressing change. May be changed by nursing and dressed with two small bandages before discharge.
[2024-03-28] MEDS: KETOROLAC INJ 30 MG/ML VIAL IVP (17:26)
--- NOTE | 2024-03-29 08:17 | PC.SS ---
Secondary English Teacher (KERMIT) Sparkle received a phone call from Personnel Security Assistant at [facility] requesting discharge summary. KERMIT faxed information to [phone].
== END 2024-03-28 18:23 | disposition skilled nursing facility (03) | DRG 482 ==
LOC: SERX 18:16 → SERHOLD 19:51 → S3SX 21:55
PROVIDERS: Orthopaedic Surgery; Admitting Provider Internal Medicine; Emergency Provider Emergency Medicine; PCP Specialist; Visit Provider Student in an Organized Health Care Education/Training Program
PROC: 0QS604Z Reposition Right Upper Femur with Internal Fixation Device, Open Approach (ICD-10-PCS; CPT 27245; principal; 2024-03-25 12:00)
DX: S72.144A Nondisplaced intertrochanteric fracture of right femur, initial encounter for closed fracture (principal); I34.1 Nonrheumatic mitral (valve) prolapse; M81.0 Age-related osteoporosis without current pathological fracture; G89.11 Acute pain due to trauma; I10 Essential (primary) hypertension; D72.829 Elevated white blood cell count, unspecified; K59.00 Constipation, unspecified; I45.10 Unspecified right bundle-branch block; G89.29 Other chronic pain; Z79.82 Long term (current) use of aspirin; Z79.899 Other long term (current) drug therapy; W01.0XXA Fall on same level from slipping, tripping and stumbling without subsequent striking against object, initial encounter; Y92.000 Kitchen of unspecified non-institutional (private) residence as the place of occurrence of the external cause
CPT/HCPCS: 36415; 71045; 72192; 73502; 76000; 80053; 80061; 83735; 84100; 85025; 85610; 85730; 86850; 86870; 86900; 86901; 86921; 86922; 87081; 93005; 96374; 96375; 97162; 99285; A4217; A4649; C1713; J0689; J0690; J1100; J1580; J1885; J2250; J2270; J2274; J2405; J2470; J2704; J2795; J3010; J3490; P9045; A9270

== ENCOUNTER → 2024-05-01 | Outpatient (CLI) | payer MEDICARE, SELFPAY ==
--- NOTE | 2024-05-01 15:38 | XR_ITS ---
Examination:Right hip AP, lateral, AP pelvis 3 views, AP lateral right femur 2 views Technique: Hip AP lateral, AP pelvis, 3 views, AP lateral right femur 2 views total 5 views Exam date and time:May 01, 2024 1555 hrs. Indications: Status post operative reduction internal fixation right hip fracture March 28, 2024 Findings: Significant healing right hip fracture with satisfactory alignment Orthopedic hardware including long intramedullary femoral todd satisfactory position Impression: Significant healing right hip fracture with satisfactory alignment.
== END | disposition home or self-care (01) ==
PROVIDERS: PCP Orthopaedic Surgery; Referring Provider Orthopaedic Surgery; Visit Provider Orthopaedic Surgery
DX: S72.091A Other fracture of head and neck of right femur, initial encounter for closed fracture (principal); X58.XXXA Exposure to other specified factors, initial encounter
CPT/HCPCS: 73502

== ENCOUNTER → 2024-10-28 | Outpatient (CLI) | payer MEDICARE, BC, SELFPAY ==
--- NOTE | 2024-10-28 | XR_ITS ---
Examination: PA lateral chest 2 views TECHNIQUE: Upright PA lateral chest 2 views Date and time: October 28, 2024, 0825 hours Comparison March 24, 2024 INDICATIONS: Status post pacemaker placement one week ago. FINDINGS: Cardiac leads satisfactory position Normal heart size No pneumothorax Minor atelectasis in the lower lung zones Prominent osteopenia, chronic compression T7 vertebral body with kyphosis deformity IMPRESSION: Cardiac leads satisfactory position Significant hyperexpansion
[2024-10-28 09:32] LABS: Albumin, Serum 4.4 gm/dL (3.4-4.8); Anion Gap 8 (7-16); BUN/Creatinine Ratio 22 Ratio (12-20); Blood Urea Nitrogen 20 mg/dL (9-23); Calcium 10.0 mg/dL (8.3-10.6); Calcium (Corrected) 10.0 mg/dL (8.5-10.1); Carbon Dioxide 27.7 mMol/L (20.0-31.0); Chloride 102 mMol/L (98-107); Creatinine (Component) 0.9 mg/dL (0.6-1.3); Glucose 89 mg/dL (74-106); Osmolality,Calculated 277 (275-295); Phosphorous 4.6 mg/dL (2.4-5.1); Potassium 4.3 mMol/L (3.4-5.1); Sodium 138 mMol/L (136-145); eGFR > 60 See Note
== END | disposition home or self-care (01) ==
LOC: CDIM 07:59 → COPL 08:35
PROVIDERS: PCP Specialist; Referring Provider Internal Medicine Cardiovascular Disease; Visit Provider Radiology Diagnostic Radiology
DX: J98.4 Other disorders of lung (principal); I20.89 Other forms of angina pectoris; I34.0 Nonrheumatic mitral (valve) insufficiency; Z95.0 Presence of cardiac pacemaker
CPT/HCPCS: 36415; 71046; 80069

== ENCOUNTER 2025-01-22 08:33 | Outpatient (AMB) | payer MEDICARE, BC, SELFPAY ==
[2025-01-22 08:49] VITALS: BP 103/69; PULSE 80; RESP 18; TEMP 36.7; O2SAT 95; BMI 23.6
--- NOTE | 2025-01-22 08:49 | ORTHONT_ITS ---
Vital signs 01/22/25 08:49 Height 1.63 m Height Method Measured Weight 62.284 kg Weight Measurement Method Standing Scale BMI 23.6 BP 103/69 Blood Pressure Source Automatic Cuff Blood Pressure Location Left Upper Arm Position Sitting Respiration 18 Pulse 80 Pulse Source Monitor Temp 98.0 F Temp Source Temporal Artery Scan Pulse Oximetry (%) 95 Oxygen Delivery Method Room Air Med/Allergies Allergies & Medications Allergies No Known Allergies Allergy (Verified 01/22/25 08:50) Medication Reconciliation aspirin 81 mg tablet,delayed release 81 mg PO BID #60 tabs 03/27/24 [Rx Confirmed 01/22/25] famotidine 20 mg tablet 20 mg PO QDAY #30 tabs 03/27/24 [Rx Confirmed 01/22/25] hydrocodone 10 mg-acetaminophen 325 mg tablet 1 tab PO Q4H PRN pain #30 tabs 03/28/24 [Rx Confirmed 01/22/25] Exam Exam Patient is in no acute distress and is cooperative with the examination today. Breathing is nonlabored. In no respiratory distress. Patient has no paraspinal tenderness. Spinal deformity cannot be appreciated. The gait of the patient is nonantalgic Bilateral extremities were evaluated and demonstrates sensation intact to light touch. Palpable pedal pulses are present. No significant edema is present. Bilateral knees were examined and the patient has full strength and range of motion.. The left hip was examined. Patient was able to flex to 90 degrees, adduct to 30 degrees, abduct to 40 degrees, internally rotate to 20 degrees, and externally rotate to 20 degrees. Patient has a negative logroll. Stinchfield is negative. The patient is nontender diffusely to touch. The right hip was examined. Patient was able to flex to 90 degrees, adduct to 30 degrees, abduct to 40 degrees, internally rotate to 20 degrees, and externally rotate to 20 degrees. Patient has a negative logroll. The stinchfield is negative. Patient is tender to palpation over the lateral aspect of her hip Assessment and Plan Problem List (1) Trochanteric bursitis: Status: Acute Plan: Patient is a 79-year-old female with right hip pain and trochanteric bursitis with a prior cephalomedullary nail. The patient has trochanteric bursitis. The fracture has healed well Recommend knee cortisone injection as patient would like to proceed with conservative treatment at this time. The risks and benefits of the procedure were reviewed with the patient and patient gave verbal consent to continue with the procedure. Procedure: performed by Dr. Cook Using sterile technique the Right knee was thoroughly prepped with alcohol, and approximately1 cc of Kenalog 40 mg/mL and 4 cc of 1% Lidocaine was injected without resistance into the medial tibial femoral joint space. The patient tolerated the procedure. Advanced Care Planning Discussion Advance care planning discussed with:: patient Office Procedures GNS Level of Care Nursing/Assessment Patient Status: Initial/New Patient Nursing Assessment/Reassesment: Medication Reconciliation, Update PMH in EMR and Vital Signs Coordination of Care: Complex Care and Chronic Disease 1-5, Education Complex Pt/Fam, Consent,records obtained, informed consent, Results/Orders obtained and Staff clarify orders New Patient Charge New Patient Point Assignment: 1094 New Patient Point Charge: FIRER TUNNEL KILN Level 3 ([id number]) Medication Given Medication Given Medication Given: No Medication Given Medication Given Medication Given: Yes Documented Dose Given: 1 Route: Infiitration Medication Given Medication Given Medication Given: No Medication Given Medication Given Medication Given: Yes Documented Dose Given: 4 Route: Infiitration Office Meds methylprednisolone acetate 80 mg/mL suspension for injection Performing Provider: Leroy Cook MD Performing Location: [facility] Documented (not given) by: Salima Vazquez on 01/22/25 11:21 Dose Route Admin Location Dispensed Lot Number Expiration Date Pack age [facility] Car Oiler 80 mg intra-articular mL methylprednisolone acetate 80 mg/mL suspension for injection Performing Provider: Leroy Cook MD Performing Location: [facility] Administered by: Leroy Cook MD on 01/22/25 11:21 Dose Route Admin Location Dispensed Lot Number Expiration Date Pack age [facility] Car Oiler 80 mg intra-articular 1 mL [id number] 10/22/26 [id number] [employer] ropivacaine (PF) 2 mg/mL (0.2 %) injection solution Performing Provider: Leroy Cook MD Performing Location: [facility] Documented (not given) by: Salima Vazquez on 01/22/25 11:21 Dose Route Admin Location Dispensed Lot Number Expiration Date Pack age [facility] Car Oiler 20 mL Infiltration mL ropivacaine (PF) 2 mg/mL (0.2 %) injection solution Performing Provider: Leroy Cook MD Performing Location: [facility] Administered by: Leroy Cook MD on 01/22/25 11:21 Dose Route Admin Location Dispensed Lot Number Expiration Date Pack age [facility] Car Oiler 20 mL Infiltration 20 mL [id number] 04/24/27 [id number] [facility] Intake Visit Data Collection New Patient or Established: New Patient (never been to [facility]) Reason for Visit:: OSTEOARTHRITIS RIGHT HIP Seen by Clinical Staff ONLY (RN/MA): No Tube Cutter Required: No PCP or OBGYN visit in last 3 months: Yes Hx Now: No Do You Feel Safe at Home: Yes Authorities Contacted: N/A Questionairres Past Medical History Past Medical History Have you ever been diagnosed with any of the following: Neurological Problems Seizures: No Cardiology Problems Congestive Heart Failure: No Respiratory Problems Chronic Obstructive Pulmonary Disease (COPD): No Genital/Urinary Problems Renal Disease: No Endocrine Problems Diabetes Mellitus Type 1: No Diabetes Mellitus Type 2: No Other Problems Blood Transfusions: No Blood Transfusion Reaction: No Anesthesia Reactions: No Subjective Visit Visit for: new patient and hip Immunization / Flu Flu Vaccine in the Last 12 Months: Yes Flu Vaccine Exclusion Criteria: Already Received History of Present Illness Chief complaint: OSTEOARTHRITIS RIGHT HIP Patient Is a pleasant 79-year-old female who presents today for evaluation of her right hip. She has been having the right hip pain since a fall in the intertrochanteric fracture. Her last x-rays were from April 2024. This demonstrates a fracture at this time. Her pain is all on the lateral aspect and is just hip. She has difficulty lying on the side and with direct pressure. Personal History Occupation: RETIRED Red flag PMH: none Pain Pain level (0-10): 5 Pain location: other (specify) (FROM THE RIGHT KNEE TO THE RIGHT HIP ) Pain quality: sharp, dull, aching and burning Pain timing: increases with activity Associated signs & symptoms: weakness Ambulatory data Ambulatory device: cane Walking distance (minutes): 10 Treatments Number of previous injections: 0 Improvement with previous injections: No Number of Physical Therapy sessions: 0 Improvement with PT: No Improvement with NSAIDS: no Review of Systems Review of Systems: All systems negative unless otherwise noted in HPI.
--- NOTE | 2025-01-22 09:16 | XR_ITS ---
Examination: Right hip AP, lateral, AP pelvis 3 views Technique: Hip AP lateral, AP pelvis, 3 views Exam date and time: January 22, 2025, 0925 hours INDICATIONS: History right hip fracture postop February 2024. FINDINGS: Healed right hip fracture with satisfactory alignment Moderate bilateral hip osteoarthritis Prominent osteopenia No acute hip or pelvic fracture IMPRESSION: Healed right hip fracture with satisfactory alignment.
--- NOTE | 2025-01-22 09:16 | XR_ITS ---
EXAMINATION: Right femur 2 views TECHNIQUE: AP lateral right femur 2 views Date and time: January 22, 2025, 0930 hours INDICATIONS: Right hip fracture February 2024, postop reduction internal fixation hip fracture FINDINGS: Healed right hip fracture. Satisfactory alignment Satisfactory position orthopedic hardware including intramedullary femoral todd Significant osteopenia IMPRESSION: Healed right hip fracture with satisfactory alignment
== END 2025-01-22 10:21 | disposition home or self-care (01) ==
LOC: HODSRG 08:33
PROVIDERS: PCP Orthopaedic Surgery; Referring Provider Orthopaedic Surgery; Supervising Provider Orthopaedic Surgery Adult Reconstructive Orthopaedic Surgery; Visit Provider Orthopaedic Surgery Adult Reconstructive Orthopaedic Surgery
DX: M25.551 Pain in right hip (principal); M70.61 Trochanteric bursitis, right hip; S72.001D Fracture of unspecified part of neck of right femur, subsequent encounter for closed fracture with routine healing; W19.XXXD Unspecified fall, subsequent encounter
CPT/HCPCS: 20610; 73502; 73552; 99203; J1010; J2795; G0463

== ENCOUNTER 2025-03-05 09:08 | Outpatient (AMB) | payer MEDICARE, BC, SELFPAY ==
[2025-03-05 09:19] VITALS: BP 118/76; PULSE 80; RESP 18; TEMP 36.6; O2SAT 98; BMI 24.4
--- NOTE | 2025-03-05 09:19 | PD.ORTHCLVIS ---
Vital signs 03/05/25 09:19 Height 1.63 m Height Method Stated Weight 64.92 kg Weight Measurement Method Standing Scale BMI 24.4 BP 118/76 Blood Pressure Source Automatic Cuff Blood Pressure Location Left Upper Arm Position Sitting Respiration 18 Pulse 80 Pulse Source Monitor Temp 97.8 F Temp Source Temporal Artery Scan Pulse Oximetry (%) 98 Oxygen Delivery Method Room Air Med/Allergies Allergies & Medications Allergies No Known Allergies Allergy (Verified 03/05/25 09:20) Medication Reconciliation aspirin 81 mg tablet,delayed release 81 mg PO BID #60 tabs 03/27/24 [Rx Confirmed 03/05/25] famotidine 20 mg tablet 20 mg PO QDAY #30 tabs 03/27/24 [Rx Confirmed 03/05/25] hydrocodone 10 mg-acetaminophen 325 mg tablet 1 tab PO Q4H PRN pain #30 tabs 03/28/24 [Rx Confirmed 03/05/25] Exam Exam Patient is in no acute distress and is cooperative with the examination today. Breathing is nonlabored. In no respiratory distress. Patient has no paraspinal tenderness. Spinal deformity cannot be appreciated. The gait of the patient is nonantalgic Bilateral extremities were evaluated and demonstrates sensation intact to light touch. Palpable pedal pulses are present. No significant edema is present. Bilateral knees were examined and the patient has full strength and range of motion.. The left hip was examined. Patient was able to flex to 90 degrees, adduct to 30 degrees, abduct to 40 degrees, internally rotate to 20 degrees, and externally rotate to 20 degrees. Patient has a negative logroll. Stinchfield is negative. The patient is nontender diffusely to touch. The right hip was examined. Patient was able to flex to 90 degrees, adduct to 30 degrees, abduct to 40 degrees, internally rotate to 20 degrees, and externally rotate to 20 degrees. Patient has a negative logroll. The stinchfield is negative. Patient is tender to palpation over the lateral aspect of her hip she is tender to palpation over her knee. Range of motion is 0 to 115 degrees for her knee X-rays demonstrate a cephalomedullary nail. The distal tip of the nail is abutting the anterior cortex Assessment and Plan Problem List (1) Trochanteric bursitis: Status: Acute (2) Knee pain: Status: Acute Plan: Patient is an 79-year-old female with a cephalomedullary nail of the right hip. The distal tip is abutting the anterior cortex and I think this is the likely explanation for her pain. I actually recommend referral to a orthopedic traumatologist vide for second opinion and to think whether he needs to remove the hardware or recommend a supplemental plate. Advanced Care Planning Discussion Advance care planning discussed with:: patient Office Procedures GNS Level of Care Nursing/Assessment Patient Status: Established Patient Nursing Assessment/Reassesment: Medication Reconciliation, Update PMH in EMR and Vital Signs Coordination of Care: Complex Care and Chronic Disease 1-5, Education Complex Pt/Fam, Consent,records obtained, informed consent, Results/Orders obtained and Staff clarify orders Established Patient Charge Established Patient Point Assignment: 95 Established Patient Point Charge: EP Level 3 (80-115) MA Intake Visit Data Collection New Patient or Established: Established Patient (seen at [facility] within 3 years) Reason for Visit:: RIGHT HIP XRAY/PAIN Seen by Clinical Staff ONLY (RN/MA): No Fire Tender Required: No PCP or OBGYN visit in last 3 months: Yes Hx Now: No Do You Feel Safe at Home: Yes Authorities Contacted: N/A Questionairres Past Medical History Past Medical History Have you ever been diagnosed with any of the following: Neurological Problems Seizures: No Cardiology Problems Congestive Heart Failure: No Respiratory Problems Chronic Obstructive Pulmonary Disease (COPD): No Genital/Urinary Problems Renal Disease: No Endocrine Problems Diabetes Mellitus Type 1: No Diabetes Mellitus Type 2: No Other Problems Blood Transfusions: No Blood Transfusion Reaction: No Anesthesia Reactions: No Subjective Visit Visit for: follow up visit, hip and x-rays (RESULTS) Immunization / Flu Flu Vaccine in the Last 12 Months: Yes Flu Vaccine Exclusion Criteria: Already Received History of Present Illness Chief complaint: OSTEOARTHRITIS RIGHT HIP Patient Is a pleasant 79-year-old female who presents today for evaluation of her right hip. She has been having the right hip pain since a fall in the intertrochanteric fracture. Her last x-rays were from April 2024. This demonstrates a fracture at this time. Her pain is all on the lateral aspect and is just hip. She has difficulty lying on the side and with direct pressure. We gave her a hip bursa injection. The pain is proved on the hip. However she has a lot of pain on the proximal aspect of her knee Personal History Occupation: RETIRED Red flag PMH: none Pain Pain level (0-10): 5 Pain location: other (specify) (FROM THE RIGHT KNEE TO THE RIGHT HIP ) Pain quality: sharp, dull, aching and burning Pain timing: increases with activity Associated signs & symptoms: weakness Ambulatory data Ambulatory device: cane Walking distance (minutes): 10 Treatments Number of previous injections: 0 Improvement with previous injections: No Number of Physical Therapy sessions: 0 Improvement with PT: No Improvement with NSAIDS: no Review of Systems Review of Systems: All systems negative unless otherwise noted in HPI.
== END 2025-03-05 09:49 | disposition home or self-care (01) ==
LOC: HODSRG 09:08
PROVIDERS: PCP Orthopaedic Surgery; Referring Provider Orthopaedic Surgery; Supervising Provider Orthopaedic Surgery Adult Reconstructive Orthopaedic Surgery; Visit Provider Orthopaedic Surgery Adult Reconstructive Orthopaedic Surgery
DX: M70.61 Trochanteric bursitis, right hip (principal); M25.551 Pain in right hip
CPT/HCPCS: 99213; G0463

== ENCOUNTER → 2025-03-18 | Outpatient (CLI) | payer MEDICARE, BC, SELFPAY ==
--- NOTE | 2025-03-18 10:00 | XR_ITS ---
Examination: CT right femur, without contrast. 2-D sagittal reconstructions. 2-D coronal reconstructions. 3-D reconstructions. Date and time of exam: March 18, 2025, 12:10 p.m. INDICATIONS: Right hip pain several months, diagnosis other mechanical applications of right internal hip repair CTDI: vol (mGy): 17.1 DLP: (mGycm): 1159 Technique: Multiple 1.25 mm axial sections of the right femur have been obtained. 2-D sagittal and coronal reconstructions have been obtained. 3-D reconstructions have been obtained. Low dose protocols were performed. One or more of the following dose reduction techniques were used; automated exposure control, adjustment of the mA and/or KV according to patient size, use of iterative reconstruction technique. Findings: Severe osteopenia Mild to moderate right hip osteoarthritis Healed right hip fracture with satisfactory alignment Orthopedic hardware including long intramedullary stem satisfactory position relative to the femoral shaft Moderate narrowing medial joint space right knee No patellar dislocation IMPRESSION: Healed right hip fracture with satisfactory alignment
== END | disposition home or self-care (01) ==
LOC: SCAT 09:44
PROVIDERS: PCP Specialist; Referring Provider Orthopaedic Surgery Adult Reconstructive Orthopaedic Surgery; Visit Provider Orthopaedic Surgery Adult Reconstructive Orthopaedic Surgery
DX: T84.090A Other mechanical complication of internal right hip prosthesis, initial encounter (principal); Z87.81 Personal history of (healed) traumatic fracture
CPT/HCPCS: 73700